=== PATIENT | female | born 1970 | race Caucasian/White ===

== ENCOUNTER 2022-12-17 10:38 | Outpatient (CLI) | payer BC, SELFPAY ==
[2022-12-17 19:14] LABS: Chloride* 102 mmol/L (96-114); Potassium* 4.4 mmol/L (3.6-5.1); Sodium* 140 mmol/L (135-149)
[2022-12-17 19:17] LABS: Blood Urea Nitrogen* 25 mg/dL (7-30); Carbon Dioxide* 25 mmol/L (20-32); Cholesterol* 202 mg/dL (90-199); Creatinine* 0.8 mg/dL (0.5-1.5); Estimated Glomerular Filt Rate 88 ml/min
[2022-12-17 19:18] LABS: Calcium* 9.3 mg/dL (8.4-10.6); Glucose* 114 mg/dL (60-115); HDL Cholesterol* 61 mg/dL (>=50); LDL Cholesterol Calculated 100 mg/dL (<100); Triglycerides* 205 mg/dL (40-149)
== END 2022-12-17 10:39 | disposition home or self-care (01) ==
PROVIDERS: PCP Family Medicine; Visit Provider Family Medicine
DX: E03.9 Hypothyroidism, unspecified (principal); I10 Essential (primary) hypertension; E78.5 Hyperlipidemia, unspecified; E66.9 Obesity, unspecified
CPT/HCPCS: 80048; 80061; 84443

== ENCOUNTER 2023-01-25 10:58 | Outpatient (CLI) | payer BC, SELFPAY | END 2023-01-25 10:59 | disposition home or self-care (01) | PROVIDERS: PCP Family Medicine; Visit Provider Internal Medicine | DX: Z12.11 Encounter for screening for malignant neoplasm of colon (principal); K63.5 Polyp of colon | CPT/HCPCS: 45380; 88305; J2250; J3010 ==

== ENCOUNTER 2023-07-23 10:22 | Outpatient (RCR) | payer BC, SELFPAY | END 2023-08-19 09:44 | disposition home or self-care (01) | PROVIDERS: PCP Family Medicine; Visit Provider Orthopaedic Surgery | DX: M17.12 Unilateral primary osteoarthritis, left knee (principal); Z96.652 Presence of left artificial knee joint; M62.81 Muscle weakness (generalized); R26.9 Unspecified abnormalities of gait and mobility; Z47.1 Aftercare following joint replacement surgery; M25.562 Pain in left knee; Z51.89 Encounter for other specified aftercare | CPT/HCPCS: 97110; 97161 ==

== ENCOUNTER 2023-07-30 07:23 | Day surgery (SDC) | payer BC, SELFPAY ==
[2023-07-30] VITALS (22 sets, daily range): BP systolic 101–151; BP diastolic 50–83; PULSE 59–91; RESP 16–20; TEMP 35.8–37.2; O2SAT 92–98; BMI 65.8
[2023-07-30] MEDS: ACETAMINOPHEN 500 MG TABLET 1000 MG PO ×2 (06:42→18:51)
[2023-07-30] MEDS: OXYCODONE (CR) 10 MG TAB.ER.12H PO (06:42)
[2023-07-30] MEDS: MIDAZOLAM HCL 1 MG/ML inj IVP (06:42)
[2023-07-30] MEDS: fentaNYL 100 MCG/2 ML inj IVP (06:42)
[2023-07-30] MEDS: CELECOXIB 200 MG CAPSULE PO (06:42)
[2023-07-30] MEDS: LACTATED RINGERS 1000 ML 1,000 ML 100 ML IV ×2 (06:45→10:50)
--- NOTE | 2023-07-30 08:55 | SUR.PREOP ---
verified left knee with pt md and consent left knee scrub done and double jeremy wrap to right knee unable to fit brigette lackey on
[2023-07-30] MEDS: SODIUM CHLORIDE 0.9 % (FLUSH) 10 ML SYRINGE IVF (09:28)
--- NOTE | 2023-07-30 09:30 | SUR.PREOP ---
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
--- NOTE | 2023-07-30 09:32 | SUR.PREOP ---
CPAP inspected by maintenance
[2023-07-30] MEDS: CEFAZOLIN 2 GM INJ IVP (09:45)
[2023-07-30] MEDS: TRANEXAMIC ACID 100 MG/ML INJ 1000 MG IV (09:45)
--- NOTE | 2023-07-30 09:56 | P.NB_ITS ---
Nerve Block Nerve Block Time Seen by Provider: : Date Seen: 07/30/23 Type of block requested by surgeon for post-operative analgesia: geniculars Side: left Time out performed: Yes Verification of patient name: Yes Verification of date of : Yes Site marking: site marked Name of person performing procedure: Shimon Continuous monitoring Was continuous monitoring of O2 sat, B/P, call center associate, recorded every 15 minutes?: Yes Procedure Checklist: sterile prep, needles and gloves Medications given in 5ml increments after negative aspiration: Ropivicaine %: 0.5 mL: 9 Needle gauge: 25 Patient tolerated procedure well: Yes Block Charges Block Charge (with Pro Fee): Genicular Nerve Block Use of Ultrasound Machine for Block: No
--- NOTE | 2023-07-30 09:56 | W.PM.NB ---
Nerve Block Nerve Block Time Seen by Provider: : Date Seen: 07/30/23 Type of block requested by surgeon for post-operative analgesia: adductor canal Side: left Time out performed: Yes Verification of patient name: Yes Verification of date of : Yes Site marking: site marked Name of person performing procedure: Shimon Continuous monitoring Was continuous monitoring of O2 sat, B/P, property assessment monitor, recorded every 15 minutes?: Yes Procedure Checklist: sterile prep, needles and gloves Ultrasound guided. Images saved: Yes Medications given in 5ml increments after negative aspiration: Ropivicaine %: 0.5 mL: 20 Needle gauge: 20 Decadron (mg): 10 Precedex (mcg): 25 Patient tolerated procedure well: Yes Additional comments: Needle noted adjacent to nerve Block Charges Block Charge (with Pro Fee): Femoral Nerve Use of Ultrasound Machine for Block: Yes- US Guidance/pain block
--- NOTE | 2023-07-30 09:57 | W.ANESCHARGE ---
Anesthesia Charges Start Date/Time Anesthesia Start Date: 07/30/23 Anesthesia Start Time: 09:38 Stop Date/Time Anesthesia Stop Date: 07/30/23 Anesthesia Stop Time: 12:32
--- NOTE | 2023-07-30 11:39 | CRLHL7_ITS ---
For Patients: As a result of the Cures Act, medical imaging exams and procedure reports are released immediately into your electronic medical record. You may view this report before your referring provider. If you have questions, please contact your health care provider. Indication: Postop Technique: Two views left knee Findings/Impression: Hardware from a left total knee arthroplasty is in satisfactory position. Bone alignment is normal. No sign of acute fracture. Postop changes are within normal limits. Dictated by Seng Morris MD @ 07/30/2023 1:08:58 PM (Electronically Signed)
--- NOTE | 2023-07-30 11:41 | PM.ORPRC ---
Procedure Note Date of procedure: 07/30/23 Procedure: PREOPERATIVE DIAGNOSIS: Left knee osteoarthritis POSTOPERATIVE DIAGNOSIS: Left knee osteoarthritis NAME OF OPERATION: Left total knee arthroplasty SURGEON: Iker Lamar MD SHAPER OPERATOR: Sree Puentes OPA ANESTHESIA: Spinal ESTIMATED BLOOD LOSS: 25 mL COMPLICATIONS: None SPECIMENS: None DRAINS: None PREOPERATIVE ANTIBIOTICS: Ancef 3 grams, antibiotic impregnated cement IMPLANTS: 1. J&J Attune #6 revision CRS posterior stabilized femur with a 14 mm x 50 mm cemented stem 2. # 5 revision CRS fixed-bearing tibia with a 14 mm x 50 mm cemented stem 3. #6 posterior stabilized, 8 mm fixed-bearing, constrained polyethylene 4. 38 patella INDICATIONS: The patient is a 52-year-old with a longstanding history of severe, unrelenting left knee pain secondary to end-stage (grade IV) left knee osteoarthritis. Despite appropriate nonoperative management, including activity modification, anti-inflammatories, [id number] pain medication, bracing, physical therapy, and injections they continue to have pain and disability. Operative intervention was offered. The risks, benefits and expected outcomes were discussed in detail. These included but were not limited to: Infection, bleeding, injury to blood vessel or nerve, venous thromboembolism. All questions were answered to their satisfaction. Use of an seed laboratory assistant was necessary throughout the case for patient positioning and safety, soft tissue retraction, and closure. A modifier 22 should be added to this case. The patient weighs 173 kg with a BMI of 66 kg/meter squared. There is a 50 mm thick layer of adipose over the quads tendon. These factors made exposure difficult and more than doubled the time typically required to complete the case. PROCEDURE: Spinal anesthesia was administered. The patient was placed supine on the operating table. The seed laboratory assistant made sure the patient was positioned appropriately. The lower extremity was prepped and draped in the usual sterile fashion. The limb was exsanguinated with the Myke bandage. The pneumatic tourniquet was inflated to 300 mmHg. A standard anterior incision was made with the knee in flexion. Subcutaneous dissection was sharply taken through fascial layer #1. Full-thickness medial and lateral flaps were elevated. The seed laboratory assistant retracted the soft tissues and protected them throughout the case. A standard medial parapatellar approach was made. The patella was everted. The infrapatellar fat pad was debrided. The menisci and cruciate ligaments were sharply d?brided. Marginal osteophytes were d?brided with the rongeur. The drill was used to penetrate the femoral canal. The canal was aspirated and irrigated with pulse lavage. The intramedullary femoral guide was placed for a 5-degree valgus cut, removing 10 mm off the distal femur. The saw was used to make the cut. Attention was then turned to the proximal tibia. The extramedullary tibial guide was placed for a neutral varus/valgus cut with 5 degrees of posterior slope, removing 2 mm based off the medial tibial surface. The seed laboratory assistant protected the collateral ligaments and the neurovascular bundle. The saw was used to make the cut. Attention was then returned to the distal femur. Whitesides line and the trans epicondylar axis were marked. The femoral sizing guide was pinned onto the distal femur. Three degrees of external rotation nicely parallels the transepicondylar axis. Pins were placed for posterior referencing. The four-in-one cutting guide was pinned onto the distal femur. The anterior, posterior, and chamfer cuts were made. The seed laboratory assistant protected the collateral ligaments. The trial femoral component was placed. The intramedullary drill was used x2. The box cuts were made. The stemmed, boxed trial was placed and was an excellent fit. The trial femoral component was removed. The tibial tray was placed in appropriate rotation, parallel to our tibial cutting pins. It was pinned by the seed laboratory assistant. Intramedullary drill x2 were used. The punch was used. The tray was removed. The punch was used again. The stemmed trial tibial component was placed and was an excellent fit. Trial femoral component was placed. Trial polyethylene was placed. The knee was nicely balanced in both flexion and extension. Trial components were removed. Attention was then turned to the patella. [place] patellar thickness was 24 mm. The lobster claw resection guide was used with the 9.5 mm juanis. The saw was used to make the cut. Drill holes were made by the seed laboratory assistant. The trial was placed and was an excellent fit. Cancellous surfaces were irrigated with pulse lavage and thoroughly dried by the seed laboratory assistant. We cemented the tibial component, then the femoral component. We impacted the 8 mm polyethylene onto the tibial tray. The knee was brought into full extension. We then cemented the patellar component. Excessive cement was removed. The cement was allowed to harden. The knee was taken through a range of motion and was found to be nicely balanced in both flexion and extension. The patella tracks centrally. The seed laboratory assistant did a three minute dilute Betadine solution soak. The seed laboratory assistant irrigated the wound with 3 liters of normal saline via pulse lavage. The seed laboratory assistant reapproximated the extensor mechanism with #1 Vicryl in an interrupted anokxk-uv-zcmwy fashion. The seed laboratory assistant then ran the extensor mechanism with a #1 PDO Stratafix. The seed laboratory assistant closed the subcutaneous tissues with a 3-0 Stratafix and the skin with a running 3-0 Stratafix in a subcuticular fashion. Glue was used to seal the skin. The seed laboratory assistant placed a dry dressing, JU stocking, and Polar Care. Sponge and needle counts were correct x2. The patient tolerated the procedure well. There were no apparent complications. They were carefully transferred to the hospital bed and taken to the postanesthesia care unit in satisfactory condition. PLAN: The patient will be mobilized with physical therapy. Aspirin will be used for DVT prophylaxis. They will be discharged to home once medically appropriate.
[2023-07-30] MEDS: HYDROmorphone 0.5 mg/0.5 ml inj IVP ×2 (13:50→15:28)
[2023-07-30] MEDS: LACTATED RINGERS 1000 ML 1,000 ML 75 ML IV (14:54)
--- NOTE | 2023-07-30 15:46 | P.IMCN_ITS ---
Date of Consult Consult date: 07/30/23 Primary Care Provider: Adi Brown MD Consult Narrative Reason for consult: HTN, hyperlipidemia Narrative: Janine Berrios is a 52 year old female who underwent a left total knee arthroplasty today by Dr. Lamar for severe osteoarthritis. She is feeling well postoperatively and just started to have some pain for which she took a pain pill not long ago. Review of Systems Status of ROS: Reports: 6 or more systems reviewed and unremarkable except as noted in History and below PFSH [facility] Medical History Vitamin B12 deficiency ?E53.8 - Deficiency of other specified B group vitamins (ICD-10) Bilateral primary osteoarthritis of knee ?M17.0 - Bilateral primary osteoarthritis of knee (ICD-10) Cholelithiasis ?K80.20 - Calculus of gallbladder without cholecystitis without obstruction (ICD-10) Obesity ?E66.9 - Obesity, unspecified (ICD-10) Unspecified asthma, uncomplicated ?J45.909 - Unspecified asthma, uncomplicated (ICD-10) Hyperlipidemia, unspecified ?E78.5 - Hyperlipidemia, unspecified (ICD-10) Degenerative arthritis of lumbar spine ?M47.816 - Spondylosis without myelopathy or radiculopathy, lumbar region (ICD-10) Anxiety disorder, unspecified ?F41.9 - Anxiety disorder, unspecified (ICD-10) Apnea, sleep ?G47.30 - Sleep apnea, unspecified (ICD-10) Allergic rhinitis, seasonal ?J30.2 - Other seasonal allergic rhinitis (ICD-10) Restless legs syndrome ?G25.81 - Restless legs syndrome (ICD-10) Acquired dilation of left ventricle of heart ?I51.7 - Cardiomegaly (ICD-10) Essential (primary) hypertension ?I10 - Essential (primary) hypertension (ICD-10) Depression, major ?F32.9 - Major depressive disorder, single episode, unspecified (ICD-10) Parathyroid adenoma ?D35.1 - Benign neoplasm of parathyroid gland (ICD-10) Hypothyroidism, unspecified ?E03.9 - Hypothyroidism, unspecified (ICD-10) Left ventricular hypertrophy (06/08/09) ?I51.7 - Cardiomegaly (ICD-10) Infection due to severe acute respiratory syndrome coronavirus 2 (SARS-CoV-2) ?U07.1 - COVID-19 (ICD-10) Surgical History (Updated 07/30/23 @ 16:01 by Barbara Cardona MD) S/P total knee arthroplasty (07/30/23) ?Z96.659 - Presence of unspecified artificial knee joint (ICD-10) History of total abdominal hysterectomy (03/07/13) ?Z90.710 - Acquired absence of both cervix and uterus (ICD-10) H/O section ?Z98.891 - History of uterine scar from previous surgery (ICD-10) H/O partial thyroidectomy ?E89.0 - Postprocedural hypothyroidism (ICD-10) Family History Father Coronary artery disease Heart disease B12 deficiency Mother CHF (congestive heart failure) Atrial fibrillation Sister Hypothyroidism Sister Hypothyroidism Sister Hypothyroidism Sister Hypothyroidism Social History Narrative: . 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 Lifelong nonsmoker. Alcohol use is rare. What is your current living situation?: I presently have a place to live In the past 12 months, utilities in danger of being shut off: no In past 12 months, lack of transportation kept you from medical appts, meetings, work, or getting things needed for daily living: no In the past 12 mos, have been you worried that your food would run out before you had money to buy more?: never true In the past 12 mos, the food you bought just didn't last and you didn't have money to buy more?: never true Smoking Status: Former smoker What tobacco products do you use: cigarettes Smoking quit date/years: >15 years ago Do you use any of these nicotine containing products: None Second hand tobacco smoke exposure: No How often do you have a drink containing alcohol: monthly or less Alcohol type: wine How many standard drinks containing alcohol do you have on a typical day: 1 or 2 How often do you have six or more drinks on one occasion: Never AUDIT-C Alcohol total score: 1 Non-prescribed substance use: denies use Caffeine: Yes (coffee 1-2) How often does anyone, including family, friends and others, physically hurt you : never How often does anyone, including family, friends and others, insult or talk down to you: never How often does anyone, including family, friends and others, scream or curse at you: never Little interest or pleasure in doing things: not at all Feeling down, depressed, or hopeless: more than half the days service: No Meds Home Medications and Allergies Home Medications Medication Instructions Recorded Confirmed Type multivitamin 1 tab PO QDAY 05/09/22 07/30/23 History albuterol sulfate 90 mcg/actuation 1 - 2 puff inhalation Q4H PRN 05/25/22 07/30/23 History aerosol inhaler aspirin 81 mg tablet,delayed 81 mg PO QDAY 05/25/22 07/30/23 History release (Adult Low Dose Aspirin) atorvastatin 20 mg tablet 20 mg PO HS 07/30/23 07/30/23 History levothyroxine 150 mcg tablet 150 mcg PO DAILY 07/30/23 07/30/23 History ropinirole 0.5 mg tablet 0.5 mg PO HS 07/30/23 07/30/23 History Home Medication Comments: Medications include albuterol inhaler, alprazolam as needed for anxiety, amlodipine, aspirin 81 mg daily which she held prior to surgery, atorvastatin, surgery zinc, vitamin B12 injections monthly, escitalopram, fluticasone nasal spray, hydrochlorothiazide, levothyroxine, lisinopril, lorazepam, multivitamin, then Megha main, potassium chloride, and ropinirole. Allergies Allergy/AdvReac Type Severity Reaction Status Date / Time No Known Drug Allergies Allergy Verified 07/30/23 07:49 Exam Narrative: Exam Narrative: General: No acute distress. Awake alert oriented x3. Morbidly obese. HEENT: Normocephalic atraumatic, pupils equally round and reactive to light and accommodation. Oropharynx clear. Mucous membranes are moist. No JVD. Cardiovascular: Regular rate and rhythm. No murmurs, gallops, or rubs. Chest: No increased work of breathing. Clear to auscultation bilaterally. No crackles or wheezes. Abdomen: Bowel sounds present. Soft, nondistended, nontender. No hepatosplenomegaly or masses. Extremities: Left knee bandages are clean, dry, and intact. No cyanosis or clubbing. Skin: No jaundice, no pallor, no rashes on visible skin. Const: Vital Signs, click to edit/add: Vital Signs - 24 hr 07/30/23 08:01 07/30/23 09:31 07/30/23 12:27 Temperature 98.6 F 97.4 F L Pulse Rate 70 76 72 Pulse Rate [Left P ulse Oximeter] Respiratory Rate 20 20 16 Blood Pressure 143/75 H 140/72 H 106/50 L Blood Pressure [Ri ght Arm] Pulse Oximetry 97 98 97 Oxygen Delivery Me thod Room Air Room Air Room Air 07/30/23 12:30 07/30/23 12:35 07/30/23 12:40 Temperature Pulse Rate 70 66 65 Pulse Rate [Left P ulse Oximeter] Respiratory Rate 18 18 18 Blood Pressure 115/61 101/60 117/60 Blood Pressure [Ri ght Arm] Pulse Oximetry 96 94 95 Oxygen Delivery Me thod 07/30/23 12:45 07/30/23 12:50 07/30/23 12:55 Temperature 97.3 F L Pulse Rate 59 L 63 64 Pulse Rate [Left P ulse Oximeter] Respiratory Rate 18 20 20 Blood Pressure 113/67 115/62 Blood Pressure [Ri ght Arm] Pulse Oximetry 96 95 95 Oxygen Delivery Me thod 07/30/23 13:07 07/30/23 13:15 07/30/23 13:30 Temperature 96.4 F L Pulse Rate 62 Pulse Rate [Left P ulse Oximeter] 61 61 Respiratory Rate 16 16 16 Blood Pressure Blood Pressure [Ri ght Arm] 151/74 H 140/79 H 136/77 Pulse Oximetry 96 96 Oxygen Delivery Me thod Room Air Room Air Room Air 07/30/23 13:45 07/30/23 14:00 07/30/23 14:30 Temperature 96.8 F L 97.1 F L Pulse Rate Pulse Rate [Left P ulse Oximeter] 62 68 74 Respiratory Rate 18 16 18 Blood Pressure Blood Pressure [Ri ght Arm] 130/82 144/83 H 144/83 H Pulse Oximetry 95 95 96 Oxygen Delivery Me thod Room Air Room Air Room Air 07/30/23 15:00 07/30/23 15:00 Temperature 97.8 F Pulse Rate Pulse Rate [Left P ulse Oximeter] 78 Respiratory Rate 18 Blood Pressure Blood Pressure [Ri ght Arm] 147/82 H Pulse Oximetry 96 95 Oxygen Delivery Me thod Room Air Assessment and Plan Assessment and plan (1) S/P total knee arthroplasty: Status: Acute (2) Anxiety disorder, unspecified: Status: Chronic (3) Hypothyroidism, unspecified: Status: Chronic (4) Obesity: Problem comment: BMI 64.3, obese class 3 Status: Chronic (5) Apnea, sleep: Problem comment: On CPAP Status: Chronic (6) Hyperlipidemia, unspecified: Status: Chronic (7) Essential (primary) hypertension: Status: Chronic (8) Bilateral primary osteoarthritis of knee: Problem comment: Bilateral, end-stage, [id number], severe Status: Chronic Plan 52-year-old female underwent elective left total knee arthroplasty for severe osteoarthritis today by Dr. Lamar. She is doing well postoperatively. I will reorder her usual home medications with the exception of a daily baby aspirin and her antihypertensives. Antihypertensives can be restarted tomorrow if her blood pressures remain elevated, otherwise they can be restarted upon discharge. Will also review her medications for discharge. VTE prophylaxis with twice a day low-dose baby aspirin. Follow-up with primary as needed as an outpatient.
[2023-07-30] MEDS: ALPRAZolam 0.25 MG TABLET 1 MG PO (16:19)
[2023-07-30] MEDS: OXYCODONE 5 MG TABLET PO ×3 (17:35→21:24)
--- NOTE | 2023-07-30 17:40 | PC.NURSE ---
Pt alert and oriented. Pt had complaints of pain ranging from 6-10; see EMAR for intervention. Pt SBA with walker and gait belt. Pt advanced to regular diet and tolerating well. Pt?s legs were jeremy wrapped after surgery for blood clot prevention; tolerating well.
[2023-07-30] MEDS: ROPINIROLE HCL 1 MG TABLET 0.5 MG PO (20:58)
[2023-07-30] MEDS: SENNOSIDES 1 TAB TABLET 2 TAB PO (20:58)
[2023-07-30] MEDS: ATORVASTATIN 10 MG TABLET 20 MG PO (20:59)
[2023-07-30] MEDS: BUDESONIDE 0.5 MG/2ML NEB NEB (20:59)
[2023-07-30] MEDS: lisinopriL 20 MG TABLET PO (20:59)
[2023-07-30] MEDS: ASPIRIN 81 MG TABLET EC PO (20:59)
[2023-07-31] MEDS: OXYCODONE 5 MG TABLET PO ×3 (00:58→09:31)
[2023-07-31] MEDS: ACETAMINOPHEN 500 MG TABLET 1000 MG PO ×2 (00:58→06:47)
[2023-07-31 03:00] VITALS: BP 119/64; PULSE 62; RESP 18; TEMP 36.7; O2SAT 93
--- NOTE | 2023-07-31 05:12 | PC.NURSE ---
Shift note: Pt is doing well with A1, walker and GB. Pain level was high (8-10) at the start of the shift [id number]. Pt requested pain medications Q2h. Pt confirmed later that pain has been stable at 4 after Schedule Tylenol and PRN oxycodone 5mg was given at 0100 for pain level of 10. Dressing looked clean and dry. Cryocuff applied and ABIEL wrap on BLE. No fever, n/v and abd pain after oral intake. Pt confirmed passing gas but no BM. CPAP used throughout the shift. Vitally stable.
[2023-07-31 06:17] LABS: Basophils Percent Auto 0.1 % (0.0-3.0); Hematocrit 34.8 % (33.0-51.0); Hemoglobin* 11.4 gm/dL (12.0-16.0); Lymphocytes Percent Auto 13.2 % (20-44); Mean Corpuscular HGB Conc 33 gm/dL (32-36); Mean Corpuscular Hemoglobin 29 pg (26-34); Mean Corpuscular Volume 88 fL (80-100); Monocytes Percent Auto 8.7 % (0.0-11.0); Platelet Count* 342 K/uL (140-440); RDW Coefficient of Variation % 13.4 % (11.5-15.5); Red Blood Count 3.96 m/uL (4.00-5.20)
[2023-07-31 06:20] LABS: Slide Review Reflex No
[2023-07-31] MEDS: LEVOTHYROXINE 75 MCG TABLET 150 MCG PO (06:47)
[2023-07-31 07:00] VITALS: BP 131/86; PULSE 69; RESP 18; TEMP 35.8; O2SAT 97
[2023-07-31 07:00] LABS: Potassium* 4.2 mmol/L (3.6-5.1); Sodium* 136 mmol/L (135-149)
[2023-07-31 07:03] LABS: Blood Urea Nitrogen* 21 mg/dL (7-30); Creatinine* 0.7 mg/dL (0.5-1.5); Estimated Glomerular Filt Rate 103 ml/min
[2023-07-31 07:16] LABS: INR 1.03 (0.91-1.10); Prothrombin Time 14.1 Seconds
[2023-07-31] MEDS: ASPIRIN 81 MG TABLET EC PO (08:46)
[2023-07-31] MEDS: MULTIVITAMIN/MINERALS 1 TABLET 1 TAB PO (08:46)
[2023-07-31] MEDS: lisinopriL 20 MG TABLET PO (08:46)
[2023-07-31] MEDS: SENNOSIDES 1 TAB TABLET 2 TAB PO (08:47)
[2023-07-31] MEDS: ESCITALOPRAM 10 MG TABLET PO (08:47)
[2023-07-31] MEDS: CETIRIZINE HCL 10 MG TABLET PO (08:47)
[2023-07-31] MEDS: BUDESONIDE 0.5 MG/2ML NEB NEB (08:48)
--- NOTE | 2023-07-31 09:56 | PM.ORPN ---
Subjective Subjective Time Seen by Provider: 07:30 Date Seen: 07/31/23 Principal diagnosis: Status post left knee replacement 07/30/2023 Interval history: Janine is comfortable this morning. She is sitting in a chair. She plans to discharge to home today. Ortho Exam Narrative Exam Narrative: Alert and oriented x3. Patient is in no acute distress. Converses without labored breathing. Hearing is grossly intact. Ambulates with a walker. Examination of the left lower extremity shows the dressing is intact. Bilateral calves are soft and nontender. No sign of erythema or or sign of infection. Mild edema. Effusion is present. Able to straight leg raise. Const Vital Signs, click to edit/add: Vital Signs - 24 hr 07/30/23 12:27 07/30/23 12:30 07/30/23 12:35 Temperature 97.4 F L Pulse Rate 72 70 66 Pulse Rate [Left Pulse Oximeter] Respiratory Rate 16 18 18 Blood Pressure 106/50 L 115/61 101/60 Blood Pressure [Right Arm] Pulse Oximetry 97 96 94 Oxygen Delivery Method Room Air 07/30/23 12:40 07/30/23 12:45 07/30/23 12:50 Temperature Pulse Rate 65 59 L 63 Pulse Rate [Left Pulse Oximeter] Respiratory Rate 18 18 20 Blood Pressure 117/60 113/67 115/62 Blood Pressure [Right Arm] Pulse Oximetry 95 96 95 Oxygen Delivery Method 07/30/23 12:55 07/30/23 13:07 07/30/23 13:15 Temperature 97.3 F L 96.4 F L Pulse Rate 64 62 Pulse Rate [Left Pulse Oximeter] 61 Respiratory Rate 20 16 16 Blood Pressure Blood Pressure [Right Arm] 151/74 H 140/79 H Pulse Oximetry 95 96 Oxygen Delivery Method Room Air Room Air 07/30/23 13:30 07/30/23 13:45 07/30/23 14:00 Temperature 96.8 F L Pulse Rate Pulse Rate [Left Pulse Oximeter] 61 62 68 Respiratory Rate 16 18 16 Blood Pressure Blood Pressure [Right Arm] 136/77 130/82 144/83 H Pulse Oximetry 96 95 95 Oxygen Delivery Method Room Air Room Air Room Air 07/30/23 14:30 07/30/23 15:00 07/30/23 15:00 Temperature 97.1 F L 97.8 F Pulse Rate Pulse Rate [Left Pulse Oximeter] 74 78 Respiratory Rate 18 18 Blood Pressure Blood Pressure [Right Arm] 144/83 H 147/82 H Pulse Oximetry 96 96 95 Oxygen Delivery Method Room Air Room Air 07/30/23 16:00 07/30/23 17:00 07/30/23 18:00 Temperature 98.9 F 98.9 F 98.9 F Pulse Rate Pulse Rate [Left Pulse Oximeter] 83 89 91 Respiratory Rate 18 18 18 Blood Pressure Blood Pressure [Right Arm] 150/75 H 133/71 124/68 Pulse Oximetry 94 94 93 Oxygen Delivery Method Room Air Room Air Room Air 07/30/23 18:55 07/30/23 20:28 07/30/23 23:00 Temperature 97.3 F L 97.5 F L Pulse Rate Pulse Rate [Left Pulse Oximeter] 82 88 Respiratory Rate 18 18 Blood Pressure Blood Pressure [Right Arm] 134/76 134/70 Pulse Oximetry 92 94 92 Oxygen Delivery Method Room Air Room Air 07/30/23 23:00 07/30/23 23:00 07/30/23 23:00 Temperature 97.2 F L Pulse Rate Pulse Rate [Left Pulse Oximeter] 61 61 Respiratory Rate 18 18 18 Blood Pressure Blood Pressure [Right Arm] 118/70 Pulse Oximetry 92 92 Oxygen Delivery Method Room Air Room Air 07/31/23 03:00 Temperature 98.1 F Pulse Rate Pulse Rate [Left Pulse Oximeter] 62 Respiratory Rate 18 Blood Pressure Blood Pressure [Right Arm] 119/64 Pulse Oximetry 93 Oxygen Delivery Method Room Air Assessment and Plan Assessment and plan (1) S/P total knee arthroplasty: Problem details: Left, 07/30/2023 Status: Acute Assessment and Plan: Plan for discharge is today to home if they meet discharge criteria. DVT prophylaxis includes aspirin 81 mg twice daily x1 month, Prasanna stockings x1 month may remove for 1 hr per day, frequent ambulation Remove dressing in 1 week. Observe wound and phone Orthopedics with any questions or concerns Return to clinic in 1 week for a wound check Return to clinic in 6 weeks with surgeon Minimize narcotic use. Wean off and discontinue soon as possible. Activities as tolerated. No strenuous activity. Outpatient physical therapy as scheduled. Ice and elevate the operative extremity. No restriction on ice. (2) Anxiety disorder, unspecified: Status: Chronic (3) Hypothyroidism, unspecified: Status: Chronic (4) Obesity: Problem details: BMI 64.3, obese class 3 Status: Chronic (5) Apnea, sleep: Problem details: On CPAP Status: Chronic (6) Hyperlipidemia, unspecified: Status: Chronic (7) Essential (primary) hypertension: Status: Chronic (8) Bilateral primary osteoarthritis of knee: Problem details: Bilateral, end-stage, [id number], severe Status: Chronic
[2023-07-31 11:00] VITALS: BP 129/65; PULSE 63; RESP 18; TEMP 35.5; O2SAT 96
--- NOTE | 2023-07-31 13:35 | PC.NURSE ---
discharge. pt has been pleasant. left knee pain 4-1010. she is getting po pain meds. she is up with A1, walker and GB. Dressing is C/D/I. Cryocuff on. ABIEL wrap on legs are on and off. she is a fall risk. alarms are on. PT and OT worked with her. went over discharge packet with pt. went over medications, appointments, education and instructions. she went over and signed personal belonging list. she took all paperwork and belongings with her. she was helped in to her SUV.
--- NOTE | 2023-08-07 07:59 | W.ANESCHARGE ---
Anesthesia Charges Start Date/Time Anesthesia Start Date: 07/30/23 Anesthesia Start Time: 09:38 Stop Date/Time Anesthesia Stop Date: 07/30/23 Anesthesia Stop Time: 12:32
== END 2023-07-31 11:40 | disposition home or self-care (01) ==
LOC: OR 07:25 → MEDSURG 07:28
PROVIDERS: PCP Family Medicine; Visit Provider Orthopaedic Surgery
PROC: (CPT 27447; principal; 2023-07-30 08:45)
DX: M17.12 Unilateral primary osteoarthritis, left knee (principal); G89.18 Other acute postprocedural pain; I10 Essential (primary) hypertension; E66.9 Obesity, unspecified; Z68.44 Body mass index [BMI] 60.0-69.9, adult; E78.5 Hyperlipidemia, unspecified; G47.30 Sleep apnea, unspecified; F41.9 Anxiety disorder, unspecified; E03.9 Hypothyroidism, unspecified
CPT/HCPCS: 27447; 00142; 01402; 36415; 64447; 64454; 73560; 76942; 82565; 84132; 84295; 84520; 85025; 85610; 94640; 97110; 97116; 97161; 97165; 97530; 97535; A9153; A9270; C1776; J0690; J1100; J1170; J2250; J2704; J2795; J3010; J3490; J7120; J7626

== ENCOUNTER 2023-09-18 08:18 | Outpatient (CLI) | payer BC, SELFPAY | END 2023-09-18 08:19 | disposition home or self-care (01) | LOC: LONREF 08:24 | PROVIDERS: PCP Family Medicine; Visit Provider Family Medicine | DX: Z01.818 Encounter for other preprocedural examination (principal) | CPT/HCPCS: 80048 ==

== ENCOUNTER 2023-09-30 08:40 | Day surgery (SDC) | payer BC, SELFPAY ==
[2023-09-30] VITALS (23 sets, daily range): BP systolic 99–152; BP diastolic 42–87; PULSE 63–86; RESP 16–22; TEMP 35.9–36.6; O2SAT 92–98; BMI 64.5
[2023-09-30] MEDS: ACETAMINOPHEN 500 MG TABLET 1000 MG PO ×3 (09:46→22:56)
[2023-09-30] MEDS: OXYCODONE (CR) 10 MG TAB.ER.12H PO (09:46)
[2023-09-30] MEDS: CELECOXIB 200 MG CAPSULE PO (09:46)
[2023-09-30] MEDS: SODIUM CHLORIDE 0.9 % (FLUSH) 10 ML SYRINGE IVF (10:15)
[2023-09-30] MEDS: LACTATED RINGERS 1000 ML 1,000 ML 100 ML IV (10:15)
[2023-09-30] MEDS: fentaNYL 100 MCG/2 ML inj IVP (10:26)
[2023-09-30] MEDS: MIDAZOLAM HCL 1 MG/ML inj IVP (10:26)
--- NOTE | 2023-09-30 10:26 | SUR.PREOP ---
TIME?OUT:?1025 PT/RN/MDA?VERIFICATION?OF?SURGICAL?SITE,?PROCEDURE,?AND?CONSENT OBTAINED?PRIOR?TO?INVASIVE?PROCEDURE. ALL IN AGREEMENT
[2023-09-30] MEDS: CEFAZOLIN 1 GM inj 3 GM IVP (11:02)
[2023-09-30] MEDS: TRANEXAMIC ACID 100 MG/ML INJ 1000 MG IV (11:10)
--- NOTE | 2023-09-30 11:12 | P.NB_ITS ---
Nerve Block Nerve Block Time Seen by Provider: 10:30 Date Seen: 09/30/23 Type of block requested by surgeon for post-operative analgesia: adductor canal Side: right Time out performed: Yes Verification of patient name: Yes Verification of date of : Yes Site marking: site marked Name of person performing procedure: Shimon Continuous monitoring Was continuous monitoring of O2 sat, B/P, rn cardiac rehab, recorded every 15 minutes?: Yes Procedure Checklist: sterile prep, needles and gloves Ultrasound guided. Images saved: Yes Medications given in 5ml increments after negative aspiration: Ropivicaine %: 0.5 mL: 20 Needle gauge: 20 Decadron (mg): 10 Precedex (mcg): 25 Patient tolerated procedure well: Yes Additional comments: Needle noted adjacent to nerve Block Charges Block Charge (with Pro Fee): Femoral Nerve Use of Ultrasound Machine for Block: Yes- US Guidance/pain block
--- NOTE | 2023-09-30 11:12 | W.PM.NB ---
Nerve Block Nerve Block Time Seen by Provider: 10:30 Date Seen: 09/30/23 Type of block requested by surgeon for post-operative analgesia: geniculars Side: right Time out performed: Yes Verification of patient name: Yes Verification of date of : Yes Site marking: site marked Name of person performing procedure: Shimon Continuous monitoring Was continuous monitoring of O2 sat, B/P, playground monitor, recorded every 15 minutes?: Yes Procedure Checklist: sterile prep, needles and gloves Medications given in 5ml increments after negative aspiration: Ropivicaine %: 0.5 mL: 9 Needle gauge: 25 Patient tolerated procedure well: Yes Block Charges Block Charge (with Pro Fee): Genicular Nerve Block Use of Ultrasound Machine for Block: No
--- NOTE | 2023-09-30 11:13 | W.ANESCHARGE ---
Anesthesia Charges Start Date/Time Anesthesia Start Date: 09/30/23 Anesthesia Start Time: 10:51 Stop Date/Time Anesthesia Stop Date: 09/30/23 Anesthesia Stop Time: 13:36
--- NOTE | 2023-09-30 12:43 | CRLHL7_ITS ---
For Patients: As a result of the Cures Act, medical imaging exams and procedure reports are released immediately into your electronic medical record. You may view this report before your referring provider. If you have questions, please contact your health care provider. Indication: Postop total knee arthroplasty. Technique: Right knee two views. Comparison: None available. Findings: Right knee arthroplasty appears appropriately positioned. Anterior soft tissue gas consistent with recent surgery. No acute osseous abnormality or other significant interval change. Impression: Expected changes status post right knee arthroplasty. Dictated by Ronny Barber MD @ 10/01/2023 8:32:53 PM (Electronically Signed)
--- NOTE | 2023-09-30 12:51 | P.ORPRC_ITS ---
Procedure Note Date of procedure: 09/30/23 Procedure: PREOPERATIVE DIAGNOSIS: Right knee osteoarthritis POSTOPERATIVE DIAGNOSIS: Right knee osteoarthritis NAME OF OPERATION: Right total knee arthroplasty SURGEON: Iker Lamar MD HOME COMPANION: KARO Hopper ANESTHESIA: Spinal ESTIMATED BLOOD LOSS: 0 mL COMPLICATIONS: None SPECIMENS: None DRAINS: None PREOPERATIVE ANTIBIOTICS: Ancef 3 grams, antibiotic impregnated cement IMPLANTS: 1. J&J Attune revision CRS # 5 posterior stabilized femur, with a 14 mm x 50 mm cemented stem 2. #5 revision CRS fixed-bearing tibia, with a 14 mm x 50 mm cemented stem 3. # 5 posterior stabilized, 8 mm fixed-bearing polyethylene 4. 38 patella INDICATIONS: The patient is a 53-year-old with a longstanding history of severe, unrelenting right knee pain secondary to end-stage (grade IV) right knee osteoarthritis. Despite appropriate nonoperative management, including activity modification, anti-inflammatories, [id number] pain medication, bracing, physical therapy, and injections they continue to have pain and disability. Operative intervention was offered. The risks, benefits and expected outcomes were discussed in detail. These included but were not limited to: Infection, bleeding, injury to blood vessel o r nerve, venous thromboembolism. All questions were answered to their satisfaction. Use of an contact center assistant was necessary throughout the case for patient positioning and safety, soft tissue retraction, and closure. A modifier 22 should be added to this case. The patient's weight of 170 kg with a BMI of 64.6 kg/meter sq and a 50 mm layer of adipose over the extensor mechanism made exposure very difficult. Stemmed components were used to reduce the risk of aseptic loosening. These factors more than doubled the time typically required to complete the case. PROCEDURE: Spinal anesthesia was administered. The patient was placed supine on the operating table. The contact center assistant made sure the patient was positioned appropriately. The lower extremity was prepped and draped in the usual sterile fashion. The limb was exsanguinated with the Myke bandage. The pneumatic tourniquet was inflated to 300 mmHg. A standard anterior incision was made with the knee in flexion. Subcutaneous dissection was sharply taken through fascial layer #1. Full-thickness medial and lateral flaps were elevated. The contact center assistant retracted the soft tissues and protected them throughout the case. A standard medial parapatellar approach was made. The patella was everted. The infrapatellar fat pad was preserved. The menisci and cruciate ligaments were sharply d?brided. Marginal osteophytes were d?brided with the rongeur. The drill was used to penetrate the femoral canal. The canal was aspirated and irrigated with pulse lavage. The intramedullary femoral guide was placed for a 5-degree valgus cut, removing 10 mm off the distal femur. The saw was used to make the cut. Whitesides line and the trans epicondylar axis were marked. The femoral sizing guide was pinned onto the distal femur. Three degrees of external rotation nicely parallels the transepicondylar axis. Pins were placed for posterior referencing. The four-in-one cutting guide was pinned onto the distal femur. The anterior, posterior, and chamfer cuts were made. The contact center assistant protected the collateral ligaments. Attention was then turned to the proximal tibia. The extramedullary tibial guide was placed for a neutral varus/valgus cut with 5 degrees of posterior slope, removing 2 mm based off the medial tibial surface. The contact center assistant protected the collateral ligaments and the neurovascular bundle. The saw was used to make the cut. The revision femoral trial was placed and pinned. The box cuts were made. The drill x2 were used. The stemmed, boxed trial was placed and was an excellent fit. The femoral trial was removed. Attention was returned to the tibia. The tray was placed in appropriate rotation, parallel to our tibial cutting pins. It was pinned by the contact center assistant and the drill x2 was used. The stemmed tibial trial was placed. The punch was used. The tray was removed. The punch was used again. Trial components were placed. The knee was nicely balanced in both flexion and extension. Attention was then turned to the patella. [place] patellar thickness was 22.5 mm. The lobster claw resection guide was used with the 9.5 mm juanis. The saw was used to make the cut. Drill holes were made by the contact center assistant. The trial was placed and was an excellent fit. Cancellous surfaces were irrigated with pulse lavage and thoroughly dried by the contact center assistant. We cemented the tibial component, then the femoral component. We impacted the 8 mm polyethylene onto the tibial tray. The knee was reduced and was brought into full extension. We then cemented the patellar component. Excessive cement was removed. The cement was allowed to harden. The knee was taken through a range of motion and was found to be nicely balanced in both flexion and extension. The patella tracks centrally. The contact center assistant did a three minute dilute Betadine solution soak. The contact center assistant irrigated the wound with 3 liters of normal saline via pulse lavage. The contact center assistant reapproximated the extensor mechanism with #1 Vicryl in an interrupted [id number] fashion. The contact center assistant then ran the extensor mechanism with a #1 PDO Stratafix. The contact center assistant closed the subcutaneous tissues with a 3-0 Stratafix and the skin with a running 3-0 Stratafix in a subcuticular fashion. Glue was used to seal the skin. The contact center assistant placed a dry dressing, JU stocking, and Polar Care. Sponge and needle counts were correct x2. The patient tolerated the procedure well. There were no apparent complications. They were carefully transferred to the hospital bed and taken to the postanesthesia care unit in satisfactory condition. PLAN: The patient will be mobilized with physical therapy. Aspirin will be used for DVT prophylaxis. They will be discharged to home once medically appropriate.
--- NOTE | 2023-09-30 13:38 | W.ANESCHARGE ---
Anesthesia Charges Start Date/Time Anesthesia Start Date: 09/30/23 Anesthesia Start Time: 10:51 Stop Date/Time Anesthesia Stop Date: 09/30/23 Anesthesia Stop Time: 13:36
--- NOTE | 2023-09-30 14:23 | P.IMCN_ITS ---
Date of Consult Patient: [facility] Patient Consult date: 09/30/23 Requesting Physician: Orthopedics Primary Care Provider: Adi Brown MD Consult Narrative Narrative: Janine Berrios is a 53 year old female who underwent right total knee arthroplasty today. Procedure performed by Dr. Lamar. He has requested consultation for management of medical problems postoperatively. Patient reports doing well at this time. She has no significant pain, dyspnea, chills, nausea. Prior to surgery she has been well with no recent illness or injury. She underwent left total knee arthroplasty 2 months ago and had a uneventful surgery and recovery from that. She has been very satisfied with her progress and results of her surgery. Review of Systems Narrative: Patient reports feeling well since her last surgery. [facility] Medical History (Updated 09/30/23 @ 14:31 by Abner Boyer MD) Vitamin B12 deficiency ?E53.8 - Deficiency of other specified B group vitamins (ICD-10) Cholelithiasis ?K80.20 - Calculus of gallbladder without cholecystitis without obstruction (ICD-10) Hyperlipidemia, unspecified ?E78.5 - Hyperlipidemia, unspecified (ICD-10) Degenerative arthritis of lumbar spine ?M47.816 - Spondylosis without myelopathy or radiculopathy, lumbar region (ICD-10) Apnea, sleep ?G47.30 - Sleep apnea, unspecified (ICD-10) Allergic rhinitis, seasonal ?J30.2 - Other seasonal allergic rhinitis (ICD-10) Restless legs syndrome ?G25.81 - Restless legs syndrome (ICD-10) Depression, major ?F32.9 - Major depressive disorder, single episode, unspecified (ICD-10) Unspecified asthma, uncomplicated ?J45.909 - Unspecified asthma, uncomplicated (ICD-10) Anxiety disorder, unspecified ?F41.9 - Anxiety disorder, unspecified (ICD-10) Acquired dilation of left ventricle of heart ?I51.7 - Cardiomegaly (ICD-10) Essential (primary) hypertension ?I10 - Essential (primary) hypertension (ICD-10) Parathyroid adenoma ?D35.1 - Benign neoplasm of parathyroid gland (ICD-10) Hypothyroidism, unspecified ?E03.9 - Hypothyroidism, unspecified (ICD-10) Infection due to severe acute respiratory syndrome coronavirus 2 (SARS-CoV-2) ?U07.1 - COVID-19 (ICD-10) Surgical History (Updated 09/30/23 @ 14:30 by Abner Boyer MD) History of arthroplasty of right knee ?Z96.651 - Presence of right artificial knee joint (ICD-10) S/P total knee arthroplasty (07/30/23) ?Z96.659 - Presence of unspecified artificial knee joint (ICD-10) History of total abdominal hysterectomy (03/07/13) ?Z90.710 - Acquired absence of both cervix and uterus (ICD-10) H/O section ?Z98.891 - History of uterine scar from previous surgery (ICD-10) H/O partial thyroidectomy ?E89.0 - Postprocedural hypothyroidism (ICD-10) Family History Father Coronary artery disease Heart disease B12 deficiency Mother CHF (congestive heart failure) Atrial fibrillation Sister Hypothyroidism Sister Hypothyroidism Sister Hypothyroidism Sister Hypothyroidism Social History (Updated 09/30/23 @ 14:28 by Abner Boyer MD) Narrative: She lives at home with her . Home has no stairs. Did well after knee surgery 2 months ago with mobility. She does not smoke. Rarely drinks alcohol. What is your current living situation?: I presently have a place to live Problems where you live: no known problems In the past 12 months, utilities in danger of being shut off: no In past 12 months, lack of transportation kept you from medical appts, meetings, work, or getting things needed for daily living: no In the past 12 mos, have been you worried that your food would run out before you had money to buy more?: never true In the past 12 mos, the food you bought just didn't last and you didn't have money to buy more?: never true Smoking Status: Former smoker What tobacco products do you use: cigarettes Smoking quit date/years: >15 years ago Do you use any of these nicotine containing products: None Second hand tobacco smoke exposure: No How often do you have a drink containing alcohol: monthly or less Alcohol type: wine How many standard drinks containing alcohol do you have on a typical day: 1 or 2 How often do you have six or more drinks on one occasion: Never AUDIT-C Alcohol total score: 1 Non-prescribed substance use: denies use Caffeine: Yes (coffee 1-2) How often does anyone, including family, friends and others, physically hurt you : never How often does anyone, including family, friends and others, insult or talk down to you: never How often does anyone, including family, friends and others, scream or curse at you: never Little interest or pleasure in doing things: not at all Feeling down, depressed, or hopeless: more than half the days service: No Meds Home Medications and Allergies Home Medications Medication Instructions Recorded Confirmed Type multivitamin 1 tab PO DAILY 05/09/22 09/30/23 History albuterol sulfate 90 mcg/actuation 1 - 2 puff inhalation Q4H PRN 05/25/22 09/30/23 History aerosol inhaler aspirin 81 mg tablet,delayed 81 mg PO DAILY 05/25/22 09/30/23 History release (Adult Low Dose Aspirin) atorvastatin 20 mg tablet 20 mg PO HS 07/30/23 09/30/23 History levothyroxine 150 mcg tablet 150 mcg PO DAILY 07/30/23 09/30/23 History ropinirole 0.5 mg tablet 0.5 mg PO HS 07/30/23 09/30/23 History cetirizine 10 mg tablet 10 mg PO DAILY 09/30/23 09/30/23 History escitalopram oxalate 10 mg tablet 10 mg PO DAILY 09/30/23 09/30/23 History lorazepam 1 mg tablet 1 mg PO DAILY PRN anxiety 09/30/23 09/30/23 History phentermine 15 mg capsule 15 mg PO DAILY 09/30/23 09/30/23 History Allergies Allergy/AdvReac Type Severity Reaction Status Date / Time No Known Drug Allergies Allergy Verified 09/18/23 08:07 Exam Narrative: Exam Narrative: She is alert and appears in no distress. Mood and affect are bright. She gives her own history. Eyes normal. Oropharynx with very small airway/prominent tongue. Neck is supple without mass or adenopathy. No stridor. Respirations are clear to auscultation. Cardiovascular: S1, S2, regular rate and rhythm. No murmur gallop or rub. Abdomen: Bowel sounds active. Abdomen is soft without tenderness or mass. Extremities. Well-healed left knee scar right knee is bandaged. Trace edema bilaterally. Intact pulses and sensation and motion in her feet bilaterally. Const: Vital Signs, click to edit/add: Vital Signs - 24 hr 09/30/23 09:53 09/30/23 10:25 09/30/23 10:31 Temperature 97.4 F L Pulse Rate 63 67 64 Respiratory Rate 16 16 16 Blood Pressure 119/42 L 113/72 113/72 Pulse Oximetry 97 98 98 Oxygen Delivery Me thod Room Air Nasal Cannula Nasal Cannula Oxygen Flow Rate 2 2 09/30/23 13:31 09/30/23 13:36 09/30/23 13:41 Temperature 97.8 F Pulse Rate 72 67 65 Respiratory Rate 16 16 16 Blood Pressure 99/49 L 106/54 L 116/64 Pulse Oximetry 96 97 97 Oxygen Delivery Me thod Nasal Cannula Nasal Cannula Nasal Cannula Oxygen Flow Rate 4 4 4 09/30/23 13:46 09/30/23 13:51 09/30/23 13:56 Temperature Pulse Rate 64 66 63 Respiratory Rate 16 16 16 Blood Pressure 122/72 123/74 129/70 Pulse Oximetry 97 97 95 Oxygen Delivery Me thod Nasal Cannula Nasal Cannula Room Air Oxygen Flow Rate 4 2 09/30/23 13:59 Temperature 97.7 F Pulse Rate 63 Respiratory Rate 16 Blood Pressure 141/87 H Pulse Oximetry 94 Oxygen Delivery Me thod Room Air Oxygen Flow Rate Documenting provider has reviewed patient's vital signs: yes Assessment and Plan Assessment and plan (1) History of arthroplasty of right knee: Problem comment: 09/30/2023. Dr. Lamar. No complications. Routine postoperative care, therapy, pain control. Status: Acute (2) Apnea, sleep: Problem comment: Home CPAP Status: Chronic (3) Essential (primary) hypertension: Problem comment: Resume home blood pressure medicine as blood pressure requires Status: Chronic (4) Obesity: Problem comment: BMI 64.3, obese class 3 Status: Chronic (5) Anxiety disorder, unspecified: Problem comment: Caution with benzodiazepines plus opioids. Status: Chronic Plan 53-year-old female status post right hip arthroplasty. Anticipate uncomplicated recovery and discharge to home with outpatient follow-up as she did 2 months ago with a successful left knee arthroplasty. Total time spent today is 35 minutes, 25 minutes in coordination of care and discussing with patient other providers ongoing evaluation management of knee arthroplasty and postop medical problem management
[2023-09-30] MEDS: HYDROmorphone 0.5 mg/0.5 ml inj IVP ×3 (15:00→21:01)
[2023-09-30] MEDS: OXYCODONE 5 MG TABLET PO ×3 (15:41→22:56)
--- NOTE | 2023-09-30 15:42 | PC.NURSE ---
Patient arrived to unit from PACU at 1415. Patient A&O and VSS. CPAP in room. Patient O2 maintaining on RA. Had the urge to urinate upon arrival so patient Ax2 with gait belt & walker to commode with no void. Underwear were incontinent so a brief was applied. Patient up in recliner with legs elevated, cryocuff on RLE and bilat plexi pulses. Patient denies any nausea, tolerating ice chips. Reports 5/10 pain in RLE so x1 dose IV Dilaudid given. LR infusing at 75 mL/hr.
[2023-09-30] MEDS: POTASSIUM CHLORIDE 10 MEQ CAPSULE ER 20 MEQ PO (17:23)
[2023-09-30] MEDS: CEFAZOLIN 3 GM in 0.9 % SODIUM CHLORIDE Mini-bag 100 ML IVPB (17:25)
[2023-09-30] MEDS: ASPIRIN 81 MG TABLET EC PO (20:14)
[2023-09-30] MEDS: SENNOSIDES 1 TAB TABLET 2 TAB PO (20:14)
[2023-09-30] MEDS: ROPINIROLE HCL 1 MG TABLET 0.5 MG PO (20:15)
[2023-09-30] MEDS: ATORVASTATIN 10 MG TABLET 20 MG PO (20:15)
[2023-09-30] MEDS: FLUTICASONE 110 MCG INHALER 2 PUFF IH (20:17)
[2023-09-30] MEDS: lisinopriL 20 MG TABLET PO (21:02)
--- NOTE | 2023-10-01 00:16 | PC.NURSE ---
VSS, RA. C/o of right foot pain of 7-8- some relief w/ 0.5 mg IV dilaudid. CMS intact. Tolerating regular diet, drinking well. Voided x3, last BM yesterday, 09/30- pt educated on narcotics and constipation. Up with SB assist- walker. Moving well. Dressing on right knee, c/d/i, some bruising noted to lateral knee- cryo cuff on. PIV- SL'd. Will continue to monitor, follow POC, and keep pt and family updated. Tammy Noonan RN
[2023-10-01] MEDS: HYDROmorphone 0.5 mg/0.5 ml inj IVP (00:51)
[2023-10-01] MEDS: CEFAZOLIN 3 GM in 0.9 % SODIUM CHLORIDE Mini-bag 100 ML IVPB (01:37)
[2023-10-01] MEDS: OXYCODONE 5 MG TABLET PO ×3 (02:51→09:44)
[2023-10-01 03:00] VITALS: BP 137/69; PULSE 67; RESP 20; TEMP 36.6; O2SAT 93
[2023-10-01] MEDS: ACETAMINOPHEN 500 MG TABLET 1000 MG PO ×2 (04:12→10:21)
[2023-10-01] MEDS: LEVOTHYROXINE 75 MCG TABLET 150 MCG PO (06:30)
--- NOTE | 2023-10-01 06:41 | PC.NURSE ---
END OF SHIFT NOTE: PT PLEASANT AND COOPERATIVE WITH CARES. A&Ox3. PT DENIES CP, SOB, N/V. AMBULATES WITH WALKER, GB, SBA. VSS ON RA; AFEBRILE. CRYO CUFF TO RIGHT KNEE. PT RATES RIGHT KNEE AND FOOT PAIN 7/10 WITH SOME RELIEF FROM SCHEDULED AND PRN PAIN MEDS. HX OF KIKO; PT WORE CPAP DURING HS. PT UP IN CHAIR THIS MORNING. CALL LIGHT WITHIN PT?S REACH.?
[2023-10-01 06:43] LABS: Basophils Percent Auto 0.1 % (0.0-3.0); Eosinophils Percent Auto 0.1 % (0.0-7.0); Hematocrit 35.2 % (33.0-51.0); Hemoglobin* 11.3 gm/dL (12.0-16.0); Immature Granulocytes Pct Auto 0.8 %; Mean Corpuscular HGB Conc 32 gm/dL (32-36); Mean Corpuscular Hemoglobin 28 pg (26-34); Mean Corpuscular Volume 87 fL (80-100); Monocytes Percent Auto 10.9 % (0.0-11.0); Neutrophils Percent Auto 73.1 % (42.0-72.0); Platelet Count* 372 K/uL (140-440); RDW Coefficient of Variation % 12.6 % (11.5-15.5); Red Blood Count 4.05 m/uL (4.00-5.20); White Blood Count* 17.02 K/uL (4.50-11.00)
[2023-10-01 06:47] LABS: Slide Review Reflex No
[2023-10-01 06:59] LABS: Potassium* 4.4 mmol/L (3.6-5.1); Sodium* 136 mmol/L (135-149)
[2023-10-01 07:02] LABS: Blood Urea Nitrogen* 24 mg/dL (7-30); Creatinine* 0.6 mg/dL (0.5-1.5); Est. Creatinine Clearance* 87.64; Estimated Glomerular Filt Rate 106 ml/min
[2023-10-01 07:08] LABS: INR 1.01 (0.91-1.10); Prothrombin Time 13.9 Seconds
[2023-10-01 07:45] VITALS: BP 129/63; PULSE 74; RESP 20; TEMP 36.6; O2SAT 96
--- NOTE | 2023-10-01 08:01 | PM.ORPN ---
Subjective Subjective Time Seen by Provider: 08:01 Date Seen: 10/01/23 Principal diagnosis: Status post right knee replacement Interval history: Miguelina is comfortable in the recliner currently. Her right foot is more uncomfortable than her right knee. She has discomfort over the dorsum of her foot. Ortho Exam Narrative Exam Narrative: Alert and oriented x3. Patient is in no acute distress. Converses without labored breathing. Hearing is grossly intact. Ambulates with a walker. Examination of the right knee shows ecchymosis is present. The dressing is intact. Minimal edema. Effusion is present. Calf is soft and nontender. She is able to straight leg raise. CMS intact right lower extremity. Examination of her right foot shows no ecchymosis or edema. Mildly tender to palpation over the dorsum of the foot. Const Vital Signs, click to edit/add: Vital Signs - 24 hr 09/30/23 09:53 09/30/23 10:25 09/30/23 10:31 Temperature 97.4 F L Pulse Rate 63 67 64 Pulse Rate [Right Pulse Oximeter] Respiratory Rate 16 16 16 Blood Pressure 119/42 L 113/72 113/72 Blood Pressure [Right Arm] Pulse Oximetry 97 98 98 Oxygen Delivery Method Room Air Nasal Cannula Nasal Cannula Oxygen Flow Rate 2 2 09/30/23 13:31 09/30/23 13:36 09/30/23 13:41 Temperature 97.8 F Pulse Rate 72 67 65 Pulse Rate [Right Pulse Oximeter] Respiratory Rate 16 16 16 Blood Pressure 99/49 L 106/54 L 116/64 Blood Pressure [Right Arm] Pulse Oximetry 96 97 97 Oxygen Delivery Method Nasal Cannula Nasal Cannula Nasal Cannula Oxygen Flow Rate 4 4 4 09/30/23 13:46 09/30/23 13:51 09/30/23 13:56 Temperature Pulse Rate 64 66 63 Pulse Rate [Right Pulse Oximeter] Respiratory Rate 16 16 16 Blood Pressure 122/72 123/74 129/70 Blood Pressure [Right Arm] Pulse Oximetry 97 97 95 Oxygen Delivery Method Nasal Cannula Nasal Cannula Room Air Oxygen Flow Rate 4 2 09/30/23 13:59 09/30/23 14:15 09/30/23 14:15 Temperature 97.7 F 97.2 F L 97.2 F L Pulse Rate 63 64 Pulse Rate [Right Pulse Oximeter] 64 Respiratory Rate 16 16 16 Blood Pressure 141/87 H Blood Pressure [Right Arm] 121/75 121/75 Pulse Oximetry 94 96 Oxygen Delivery Method Room Air Room Air Room Air Oxygen Flow Rate 09/30/23 14:30 09/30/23 14:45 09/30/23 15:00 Temperature 97 F L 96.7 F L 97 F L Pulse Rate Pulse Rate [Right Pulse Oximeter] 70 66 68 Respiratory Rate 16 18 16 Blood Pressure Blood Pressure [Right Arm] 113/60 116/71 119/70 Pulse Oximetry 96 96 94 Oxygen Delivery Method Room Air Room Air Room Air Oxygen Flow Rate 09/30/23 15:15 09/30/23 15:35 09/30/23 15:45 Temperature 97.1 F L 97.2 F L 96.6 F L Pulse Rate 64 Pulse Rate [Right Pulse Oximeter] 75 78 Respiratory Rate 16 16 16 Blood Pressure Blood Pressure [Right Arm] 136/71 121/75 142/76 H Pulse Oximetry 94 94 Oxygen Delivery Method Room Air Room Air Room Air Oxygen Flow Rate 2 09/30/23 16:15 09/30/23 17:15 09/30/23 18:15 Temperature 96.6 F L Pulse Rate Pulse Rate [Right Pulse Oximeter] 76 78 78 Respiratory Rate 16 16 16 Blood Pressure Blood Pressure [Right Arm] 152/79 H 140/69 H 128/70 Pulse Oximetry 92 93 93 Oxygen Delivery Method Room Air Room Air Room Air Oxygen Flow Rate 09/30/23 19:15 09/30/23 20:15 09/30/23 22:49 Temperature 97.4 F L 97.7 F Pulse Rate Pulse Rate [Right Pulse Oximeter] 86 81 80 Respiratory Rate 16 22 Blood Pressure Blood Pressure [Right Arm] 132/73 141/77 H 144/76 H Pulse Oximetry 93 93 Oxygen Delivery Method Room Air Room Air Oxygen Flow Rate 10/01/23 03:00 Temperature 97.9 F Pulse Rate Pulse Rate [Right Pulse Oximeter] 67 Respiratory Rate 20 Blood Pressure Blood Pressure [Right Arm] 137/69 Pulse Oximetry 93 Oxygen Delivery Method Room Air Oxygen Flow Rate Assessment and Plan Assessment and plan (1) Status post right knee replacement: Problem details: 09/30/2023 Status: Acute Assessment and Plan: Plan for discharge is today to home if they meet discharge criteria. DVT prophylaxis includes aspirin 81 mg twice daily x1 month, Prasanna stockings x1 month may remove for 1 hr per day, frequent ambulation Remove dressing in 1 week. Observe wound and phone Orthopedics with any questions or concerns Return to clinic in 1 week for a wound check Return to clinic in 6 weeks with surgeon Minimize narcotic use. Wean off and discontinue soon as possible. Activities as tolerated. No strenuous activity. Outpatient physical therapy as scheduled. Ice and elevate the operative extremity. No restriction on ice. Her right foot discomfort is likely due to the foot bolster used during surgery that attaches to the bed to keep the foot and leg in place during the procedure. This will improve with time. She will let us know if her symptoms do not improve.
[2023-10-01] MEDS: AMLODIPINE 5 MG TABLET PO (08:56)
[2023-10-01] MEDS: MULTIVITAMIN/MINERALS 1 TABLET 1 TAB PO (08:56)
[2023-10-01] MEDS: POTASSIUM CHLORIDE 10 MEQ CAPSULE ER 20 MEQ PO (08:56)
[2023-10-01] MEDS: FLUTICASONE 110 MCG INHALER 2 PUFF IH (08:56)
[2023-10-01] MEDS: ASPIRIN 81 MG TABLET EC PO (08:56)
[2023-10-01] MEDS: hydroCHLOROthiazide 25 MG TABLET PO (08:56)
[2023-10-01] MEDS: ESCITALOPRAM 10 MG TABLET PO (08:56)
[2023-10-01] MEDS: CETIRIZINE HCL 10 MG TABLET PO (08:56)
[2023-10-01] MEDS: lisinopriL 20 MG TABLET PO (08:56)
[2023-10-01] MEDS: SENNOSIDES 1 TAB TABLET 2 TAB PO (08:59)
--- NOTE | 2023-10-01 11:07 | PC.NURSE ---
Eval by Amaris JEROME. Eval by PT Barak and OT Sheela. Please see eMar for meds provided. Pain 7 out of 10. RTKA with Dr. Lamar, VS wnl and mepilex dressing CDI. Pt verbalized understanding of d/c diagnosis, new prescriptions, home meds, f/up appts and sx to report urgently to physician. D/C'ed via WC to own home w/her cryo duff & personal belongings at 1041am. Pt's Derik provided transportation.
== END 2023-10-01 10:41 | disposition home or self-care (01) ==
LOC: OR 08:41 → MEDSURG 08:42
PROVIDERS: PCP Family Medicine; Visit Provider Orthopaedic Surgery
PROC: (CPT 27447; principal; 2023-09-30 11:00)
DX: M17.11 Unilateral primary osteoarthritis, right knee (principal); G89.18 Other acute postprocedural pain; Z68.44 Body mass index [BMI] 60.0-69.9, adult; E66.9 Obesity, unspecified; G47.30 Sleep apnea, unspecified; I10 Essential (primary) hypertension; F41.9 Anxiety disorder, unspecified; M79.671 Pain in right foot
CPT/HCPCS: 27447; 01402; 36415; 64447; 64454; 73560; 76942; 82565; 84132; 84295; 84520; 85025; 85610; 97110; 97116; 97161; 97165; 97530; A9153; A9270; C1776; J0690; J1100; J1170; J2250; J2704; J2795; J3010; J7120

== ENCOUNTER 2023-10-12 15:04 | Emergency (ER) | payer BC, SELFPAY ==
[2023-10-12 15:20] VITALS: BP 100/63; PULSE 69; RESP 18; TEMP 36.4; O2SAT 96
--- NOTE | 2023-10-12 15:38 | CRLHL7_ITS ---
For Patients: As a result of the Century Cures Act, medical imaging exams and procedure reports are released immediately into your electronic medical record. You may view this report before your referring provider. If you have questions, please contact your health care provider. INDICATION: Postop complication. Knee surgery on 09/30/2023. TECHNIQUE: Two views of the right knee. COMPARISON: Right knee radiographs 09/30/2023. FINDINGS: A right knee arthroplasty is in place in anatomic alignment. No evidence of periprosthetic fracture or dislocation. There is a large suprapatellar knee joint effusion containing a small focus of gas. Overall gas density has nearly completely resolved compared to the previous exam. IMPRESSION: 1. Right knee arthroplasty in anatomic alignment without radiographic evidence of hardware complication. 2. Large suprapatellar knee joint effusion. Dictated by Li Hassan MD @ 10/12/2023 4:49:44 PM (Electronically Signed)
--- NOTE | 2023-10-12 15:41 | ED_ITS ---
HPI - General Adult General Chief complaint: Post Op Complication Stated complaint: knee pain Time Seen by Provider: 10/12/23 15:05 History of Present Illness HPI narrative: Patient is a 53-year-old white obese female who had her right knee replaced couple weeks ago. She is doing well for a week and then subsequently felt like ?something is moving around in a ?. She is in a good amount of discomfort at this time around her knee. She has no other specific limitations, no shortness of breath, no chest pain, no change in leg swelling. She has been doing some physical therapy. No redness, erythema or drainage of the knee. Related Data Home Medications Medication Instructions Recorded Confirmed multivitamin 1 tab PO DAILY 05/09/22 09/30/23 albuterol sulfate 90 mcg/actuation 1 - 2 puff inhalation Q4H PRN 05/25/22 09/30/23 aerosol inhaler aspirin 81 mg tablet,delayed 81 mg PO DAILY 05/25/22 09/30/23 release (Adult Low Dose Aspirin) atorvastatin 20 mg tablet 20 mg PO HS 07/30/23 09/30/23 ropinirole 0.5 mg tablet 0.5 mg PO HS 07/30/23 09/30/23 cetirizine 10 mg tablet 10 mg PO DAILY 09/30/23 09/30/23 lorazepam 1 mg tablet 1 mg PO DAILY PRN anxiety 09/30/23 09/30/23 phentermine 15 mg capsule 15 mg PO DAILY 09/30/23 09/30/23 Previous Rx's Medication Instructions Recorded cyanocobalamin (vitamin B-12) 1,000 mcg IM MONTHLY #10 mL 04/09/23 1,000 mcg/mL injection solution amlodipine 5 mg tablet 5 mg PO DAILY #4 tabs 04/12/23 hydrochlorothiazide 25 mg tablet 25 mg PO DAILY #4 tabs 04/12/23 lisinopril 20 mg tablet 20 mg PO BID #8 tabs 04/12/23 potassium chloride 20 mEq 20 meq PO BID #8 tabs 04/12/23 tablet,extended release(part/cryst) alprazolam 1 mg tablet 1 mg PO TID PRN anxiety #20 tabs 05/09/23 acetaminophen 500 mg capsule 500 - 1,000 mg (1 - 2 x 500 mg) PO 07/30/23 Q6H PRN pain #100 caps fluticasone propionate 110 2 puff inhalation BID #12 grams 08/09/23 mcg/actuation HFA aerosol inhaler aspirin 81 mg chewable tablet 81 mg PO BID for DVT prophylaxis 09/30/23 (Aspirin Childrens) 30 days #60 tabs sennosides 8.6 mg tablet (Senna 17.2 mg (2 x 8.6 mg) PO BID PRN 09/30/23 Lax) constipation #100 tabs oxycodone 5 mg tablet 2.5 - 5 mg (0.5 - 1 x 5 mg) PO 10/08/23 Q4-6H PRN Pain #42 tabs escitalopram oxalate 10 mg tablet 10 mg PO DAILY #90 tabs 10/11/23 levothyroxine 150 mcg tablet 150 mcg PO DAILY #90 tabs 10/11/23 Allergies Allergy/AdvReac Type Severity Reaction Status Date / Time No Known Drug Allergies Allergy Verified 10/12/23 15:20 Review of Systems Status of ROS: Reports: 6 or more systems reviewed and unremarkable except as noted in History and below [facility] Medical History Vitamin B12 deficiency ?E53.8 - Deficiency of other specified B group vitamins (ICD-10) Cholelithiasis ?K80.20 - Calculus of gallbladder without cholecystitis without obstruction (ICD-10) Hyperlipidemia, unspecified ?E78.5 - Hyperlipidemia, unspecified (ICD-10) Degenerative arthritis of lumbar spine ?M47.816 - Spondylosis without myelopathy or radiculopathy, lumbar region (ICD-10) Apnea, sleep ?G47.30 - Sleep apnea, unspecified (ICD-10) Allergic rhinitis, seasonal ?J30.2 - Other seasonal allergic rhinitis (ICD-10) Restless legs syndrome ?G25.81 - Restless legs syndrome (ICD-10) Depression, major ?F32.9 - Major depressive disorder, single episode, unspecified (ICD-10) Unspecified asthma, uncomplicated ?J45.909 - Unspecified asthma, uncomplicated (ICD-10) Anxiety disorder, unspecified ?F41.9 - Anxiety disorder, unspecified (ICD-10) Acquired dilation of left ventricle of heart ?I51.7 - Cardiomegaly (ICD-10) Essential (primary) hypertension ?I10 - Essential (primary) hypertension (ICD-10) Parathyroid adenoma ?D35.1 - Benign neoplasm of parathyroid gland (ICD-10) Hypothyroidism, unspecified ?E03.9 - Hypothyroidism, unspecified (ICD-10) Infection due to severe acute respiratory syndrome coronavirus 2 (SARS-CoV-2) ?U07.1 - COVID-19 (ICD-10) Surgical History History of arthroplasty of right knee ?Z96.651 - Presence of right artificial knee joint (ICD-10) S/P total knee arthroplasty (07/30/23) ?Z96.659 - Presence of unspecified artificial knee joint (ICD-10) History of total abdominal hysterectomy (03/07/13) ?Z90.710 - Acquired absence of both cervix and uterus (ICD-10) H/O section ?Z98.891 - History of uterine scar from previous surgery (ICD-10) H/O partial thyroidectomy ?E89.0 - Postprocedural hypothyroidism (ICD-10) Family History Father Coronary artery disease Heart disease B12 deficiency Mother CHF (congestive heart failure) Atrial fibrillation Sister Hypothyroidism Sister Hypothyroidism Sister Hypothyroidism Sister Hypothyroidism Social History Narrative: She lives at home with her . Home has no stairs. Did well after knee surgery 2 months ago with mobility. She does not smoke. Rarely drinks alcohol. What is your current living situation?: I presently have a place to live Problems where you live: no known problems In the past 12 months, utilities in danger of being shut off: no In past 12 months, lack of transportation kept you from medical appts, meetings, work, or getting things needed for daily living: no In the past 12 mos, have been you worried that your food would run out before you had money to buy more?: never true In the past 12 mos, the food you bought just didn't last and you didn't have money to buy more?: never true Smoking Status: Former smoker What tobacco products do you use: cigarettes Smoking quit date/years: >15 years ago Do you use any of these nicotine containing products: None Second hand tobacco smoke exposure: No How often do you have a drink containing alcohol: monthly or less Alcohol type: wine How many standard drinks containing alcohol do you have on a typical day: 1 or 2 How often do you have six or more drinks on one occasion: Never AUDIT-C Alcohol total score: 1 Non-prescribed substance use: denies use Caffeine: Yes (coffee 1-2) How often does anyone, including family, friends and others, physically hurt you : never How often does anyone, including family, friends and others, insult or talk down to you: never How often does anyone, including family, friends and others, scream or curse at you: never Little interest or pleasure in doing things: not at all Feeling down, depressed, or hopeless: more than half the days service: No Exam Narrative: Exam Narrative: Objective: Vital signs show no fever She has fairly good range motion of the knee, there is no redness or erythema around the wound site, distal CMS appears intact, no palpable calf pain, but the patient does have extremely large legs. Distal CMS appears intact Const: Vital Signs, click to edit/add: Vital Signs - 24 hr 10/12/23 15:20 Temperature 97.6 F Pulse Rate [Pulse Oximeter] 69 Respiratory Rate 18 Blood Pressure [Ri ght Forearm] 100/63 Pulse Oximetry 96 Oxygen Delivery Me thod Room Air Course Vital Signs Vital signs: Initial Vital Signs Temperature 97.6 F 10/12/23 15:20 Temperature Source Temporal Artery Scan 10/12/23 15:20 Pulse Rate 69 10/12/23 15:20 Respiratory Rate 18 10/12/23 15:20 Blood Pressure 100/63 10/12/23 15:20 Blood Pressure Mean 75 10/12/23 15:20 Blood Pressure Position Sitting 10/12/23 15:20 Pulse Oximetry 96 10/12/23 15:20 Oxygen Delivery Method Room Air 10/12/23 15:20 Vital Signs Temperature 97.6 F 10/12/23 15:20 Pulse Rate 69 10/12/23 15:20 Respiratory Rate 18 10/12/23 15:20 Blood Pressure 100/63 10/12/23 15:20 Pulse Oximetry 96 10/12/23 15:20 Oxygen Delivery Method Room Air 10/12/23 15:20 Temperature 97.6 F 10/12/23 15:20 Pulse Rate 69 10/12/23 15:20 Respiratory Rate 18 10/12/23 15:20 Blood Pressure 100/63 10/12/23 15:20 Pulse Oximetry 96 10/12/23 15:20 Oxygen Delivery Method Room Air 10/12/23 15:20 Medical Decision Making MDM Narrative Medical decision making narrative: [age] year white female status post knee replacement a couple of weeks with now increasing pain in the knee. Will check an x-ray. Patient may need a knee immobilizer and follow up with Ortho on Saturday for reassessment. No evidence of infection or other abnormality at this time. No drainage from the wound no wound infection noted. Addendum 4:00 p.m.: The patient is x-ray by my review looks unremarkable the replacement products look in place. She is able to toe walk with her leg straight and will get her a knee immobilizer for couple of days till she sees Alisha our nurse PA in orthopedics for follow-up. She already has an appointment. She can use oxycodone and Tylenol as needed. And recheck sooner problems or concerns. Discharge Plan Discharge Clinical Impression: History of total right knee replacement, Knee pain, right Patient Disposition: Home w/ Parent or Adult Condition: Stable Additional Instructions: May continue the oxycodone and Tylenol as needed, knee immobilizer will be placed for a couple of days, follow-up with Alisha in the orthopedic office on Saturday as planned. Return to ED sooner problems or concerns. Activity Level: Light activity Discharge Diet: Regular Prescriptions: No Action albuterol sulfate 90 mcg/actuation HFA aerosol inhaler 1 - 2 puff inhalation Q4H PRN Patient Comments: aspirin [Adult Low Dose Aspirin] 81 mg tablet,delayed release (DR/EC) 81 mg PO DAILY Hold Instructions: Resume on 08/29/23. once you are done taking aspirin twice daily, restart the daily dose atorvastatin 20 mg tablet 20 mg PO HS ropinirole 0.5 mg tablet 0.5 mg PO HS acetaminophen 500 mg capsule 500 - 1,000 mg PO Q6H MDD 4000mg per day PRN (Reason: pain) Qty: 100 0RF cetirizine 10 mg tablet 10 mg PO DAILY phentermine 15 mg capsule 15 mg PO DAILY Rx Instructions: must administer 2 hours after breakfast lorazepam 1 mg tablet 1 mg PO DAILY PRN (Reason: anxiety) sennosides [Senna Lax] 8.6 mg Tablet 17.2 mg PO BID PRN (Reason: constipation) Qty: 100 0RF aspirin [Aspirin Childrens] 81 mg tablet,chewable 81 mg PO BID 30 Days Qty: 60 0RF multivitamin Tablet 1 tab PO DAILY cyanocobalamin (vitamin B-12) 1,000 mcg/mL solution 1,000 mcg IM MONTHLY Qty: 10 1RF amlodipine 5 mg tablet 5 mg PO DAILY Qty: 4 0RF hydrochlorothiazide 25 mg tablet 25 mg PO DAILY Qty: 4 0RF lisinopril 20 mg tablet 20 mg PO BID Qty: 8 0RF potassium chloride 20 mEq tablet,ER particles/crystals 20 meq PO BID Qty: 8 0RF alprazolam 1 mg tablet 1 mg PO TID PRN (Reason: anxiety) Qty: 20 0RF fluticasone propionate 110 mcg/actuation HFA aerosol inhaler 2 puff inhalation BID Qty: 12 8RF oxycodone 5 mg tablet 2.5 - 5 mg PO Q4-6H MDD 6 tabs per day PRN (Reason: Pain) Qty: 42 0RF Rx Instructions: Minimize. Discontinue as soon as possible levothyroxine 150 mcg tablet 150 mcg PO DAILY Qty: 90 3RF escitalopram oxalate 10 mg tablet 10 mg PO DAILY Qty: 90 3RF Follow Up/Referrals: Adi Brown MD [Primary Care Provider] - Stand Alone Forms: [facility] Info Instructions
== END 2023-10-12 16:37 | disposition home or self-care (01) ==
LOC: ED 16:17
PROVIDERS: Emergency Provider Family Medicine; PCP Family Medicine
DX: M25.561 Pain in right knee (principal); Z96.651 Presence of right artificial knee joint
CPT/HCPCS: 73560; 99283; 99284

== ENCOUNTER 2024-06-29 11:03 | Outpatient (CLI) | payer BC, SELFPAY ==
--- OUTSIDE RECORDS SUMMARY | 2024-06-29 11:09 | XMS_ITS | Clinical Summary ---
Author Organization [facility] Address [address] [place] [address] Care Team Providers Care Canvas Worker Apprentice Name Role Phone Elsewhere, Pcp Primary Care Provider Unavailabl e Source Comments Patient records contain information from all sites at [facility]. For routine questions regarding patient records, call [phone] during business hours, M-F 8:00 AM - 5:00 PM Central Time. Record requests for emergency care only can be directed to [phone] at any time.[facility] Allergies No known active allergies Medications Medication Sig Dispensed Refills Start Date End Date Status potassium chloride (KLOR-CON SPRINKLE) 10 mEq ER sprinkle capsule Take 1 capsule by mouth 2 (two) times a day. 04/05/2015 Active rOPINIRole (REQUIP) 0.5 mg tablet Take 1 tablet by mouth at bedtime. 04/05/2015 Active lisinopriL (PRINIVIL,ZESTRI L) 20 mg tablet TAKE ONE TABLET BY MOUTH TWICE A DAY 180 tablet 3 12/28/2019 Active calcium carbonate (OS-AUSTIN) 1,250 mg (500 mg calcium) tablet Take 1,250 mg by mouth. Active LORazepam (Ativan) 1 mg tablet Take 1-2 tablets (1-2 mg total) by mouth 2 (two) times a day as needed for anxiety (as needed). Anxiety. 30 tablet 1 04/24/2020 Active cetirizine (ZyrTEC) 10 mg tablet Take 10 mg by mouth daily. Active amLODIPine (Norvasc) 5 mg tablet Take 1 tablet (5 mg total) by mouth daily. 90 tablet 3 09/23/2020 Active cyanocobalamin (VITAMIN B12) 1,000 mcg/mL injection Inject 1 mL (1,000 mcg total) intramuscularly every 30 (thirty) days. 3 mL 3 12/09/2020 Active phentermine-topi ramate (Qsymia) 7.5-46 mg capsule, ER multiphase 24 hr ext release capsule Take 1 capsule by mouth every morning before breakfast. 30 capsule 5 12/21/2020 Active atorvastatin (LIPITOR) 20 mg tablet TAKE ONE TABLET BY MOUTH AT BEDTIME 90 tablet 3 01/12/2021 Active hydroCHLOROthiaz markel (HYDRODIURIL) 25 mg tablet TAKE ONE TABLET BY MOUTH ONCE DAILY 90 tablet 02/23/2021 Active Flovent HFA 110 mcg/actuation inhaler TAKE 2 PUFFS TWO TIMES A DAY - RINSE MOUTH AFTER EACH USE AND SPIT OUT 36 g 3 05/26/2021 Active aspirin 81 mg chewable tablet Chew 81 mg daily. 05/25/2022 Ac tive levothyroxine (SYNTHROID, LEVOTHROID) 150 mcg tablet Take 150 mcg by mouth daily. 10/11/2022 Active phentermine 15 mg capsule Take 15 mg by mouth daily. 02/21/2021 Active Active Problems Problem Noted Date Diagnosed Date Xanthelasma Left Upper Eyelid 03/15/2019 Restless Leg Syndrome 02/20/2019 Hypothyroidism Acquired 02/20/2019 Hypercholesterolemia 06/30/2018 Apnea Sleep Obstructive 06/30/2018 Overview (02/20/2019): 6 cm H2o Morbid Severe Obesity Due To Excess Calories Hypertension Essential Primary 06/30/2018 Pain Knee Bilateral 06/30/2018 Immunizations Name Administration Dates Next Due Influenza (IM) Preservative Free 10/24/2010 Influenza, Unspecified 08/26/2018 Tdap 07/15/2009 influenza vaccine quad (FLUZ ONE/FLUARIX) (6 months and older)(PF) 08/23/2015 Family History Medical History Relation Name Comments Heart attack Father Bradycardia Mother Hypertension Mother Asthma Sister 5 sisters Diabetes Sister 5 sisters Vitamin B12 deficiency Sister 5 sisters Relation Name Status Comments Brother 6 brothers Alive Father Alive heart attack Mother Alive Sister 5 sisters Alive Social History Tobacco Use Types Packs/Day Years Used Date Smoking Tobacco: Never Smokeless Tobacco: Never PHQ-2 Answer Date Recorded PHQ-2 Score 0 04/22/2019 Nutrition Answer Date Recorded Nutrition: EVOO Fat Source Unknown 01/11 Nutrition: Servings of Fruits/Vegetables per Day Not on file 01/11/2021 Dental Answer Date Recorded Dental: Regular Dentist Unknown 01/12/20 21 Sex and Gender Information Value Date Recorded Sex Assigned at Not on file Gender Identity Female 06/30/2018 8:07 AM CDT Sexual Orientation Not on file Last Filed Vital Signs Vital Sign Reading Time Taken Comments Blood Pressure 125/58 04/03/2023 8:15 AM CDT Pulse 67 04/03/2023 8:15 AM CDT Temperature 37.1 ??C (98.8 ??F) 04/03/2023 1:58 AM CD T Respiratory Rate 21 04/03/2023 8:15 AM CDT Oxygen Saturation 96% 04/03/2023 8:15 AM CDT Inhaled Oxygen Concentration - - Weight 179 kg (393 lb 8.3 oz) 04/03/2023 1:27 AM CDT Height 162.7 cm (5' 4.06) 02/20/2019 2:13 PM CD T Body Mass Index 67.43 02/20/2019 2:13 PM CDT Plan of Treatment Health Maintenance Due Date Last Done Comments CT Colonography 1968 Cologuard 1968 Colonoscopy 1968 Colorectal Cancer Screening 1968 FIT 1968 HIV Screening 1968 Hepatitis C Screening 1968 Mammogram 1968 Office Visit for Blood Pressure Check / Re-check 1968 Hepatitis B Vaccines (1 of 3 - 19+ 3-dose series) 1987 Zoster Vaccines (1 of 2) 2018 Thyroid Stimulating Hormone (TSH) test for thyroid function 11/05/2021 11/05/2020, 09/02/2019, 08/26/2018, Additional history exists COVID-19 Vaccine ( season) 2023 03/26/2021, 03/05/2021 Depression Screening (Annual PHQ-2) 11/11/2023 Cervical Cancer Screening 02/21/2024 02/20/2019, 10/2019 Creatinine Level (Kidney Function Test) 04/03/2024 04/03/2023, 01/05/2023, 11/14/2020, Additional history exists Potassium Level 04/03/2024 04/03/2023, 02/2021, 11/14/2020, Additional history exists Sodium Level 04/03/2024 04/03/2023, 02/2021, 11/14/2020, Additional history exists Influenza Vaccine (#1) 2024 , 08/26/2018, 08/23/2015, Additional history exists Lipid (Cholesterol) Screening 09/02/2024 09/02/2019, 08/26/2018, 06/30/2018, Additional history exists Fasting Glucose for Diabetes Screening 04/03/2026 04/03/2023, 11/14/2020, 11/12/2020, Additional history exists DTaP,Tdap,and Td Vaccines (3 - Td or Tdap) 01/13/2032 01/12/2022, 07/15/2009 Pneumococcal vaccine (0-64 years) Aged Out No longer eligible based on patient's age to complete this topic Procedures Procedure Name Priority Date/Time Associated Diagnosis Comments BASIC METABOLIC PANEL, S/P STAT 04/03/2023 1:37 AM CDT LIPID PANEL, S Routine 09/02/2019 1:32 PM CDT Hypercholesterolemia THYROID-STIMULATING HORMONE-SENSITIVE (S-TSH) Routine 09/02/2019 1:32 PM CDT Hypothyroidism THINPREP W/HPV CO-TEST DIAGNOSTIC Routine 02/20/2019 3:54 PM CDT Pap Smear Examination from Last 3 Months or Most Recently Relevant to Health Maintenance Results * (ABNORMAL) Basic Metabolic Panel (04/03/2023 1:37 AM CDT) Potassium, P 3.4(L) 3.6 - 5.2 mmol/L 04/03/2023 2:03 AM CDT NPRG Sodium, P 137 135 - 145 mmol/L 04/03/2023 2:03 AM CDT NPRG Chloride, P 98 98 - 107 mmol/L 04/03/2023 2:03 AM CDT NPRG Bicarbonate, P 23 22 - 29 mmol/L 04/03/2023 2:03 AM CDT NPRG Anion Gap, P 16(H) 7 - 15 04/03/2023 2:03 AM CDT NPRG BUN (Blood Urea Nitrogen), P 25(H) 6 - 21 mg/dL 04/03/2023 2:03 AM CDT NPRG Creatinine 0.86 0.59 - 1.04 mg/dL 04/03/2023 2:03 AM CDT NPRG Estimated GFR (eGFR) 80 >=60 mL/min/BSA 04/03/2023 2:03 AM CDT NPRG Comment: Estimated GFR calculated using the 2020 CKD_EPI creatinine equation. Calcium, Total, P 9.2 8.6 - 10.0 mg/dL 04/03/2023 2:03 AM CDT NPRG Glucose, P 193(H) 70 - 140 mg/dL 04/03/2023 2:03 AM CDT NPRG Blood (Blood, Venous) 04/03/2023 1:37 AM CDT 04/03/2023 1:41 AM CDT Valerie Slaughter M.D., M.P.H. LAB BLOOD A DD-ON [facility] [address] [place] [address], [facility] NPRG [facility] [address] [place] [address] * (ABNORMAL) Lipid Panel (09/02/2019 1:32 PM CDT) [facility] Cholesterol, Total 191 mg/dL 2018 5:18 PM CDT [facility] Comment: ----REFERENCE VALUE---- Desirable: < 200 Borderline high: 200 - 239 High: > or = 240 Triglycerides 219(H) mg/dL 09/02/2019 5:18 PM CDT [facility] Comment: ----REFERENCE VALUE---- Normal: <150 Borderline high: 150-199 High: 200-499 Very high: > or =500 Cholesterol, HDL, S 42(L) >=50 mg/dL 09/02/2019 5:18 PM CDT [facility] Calculated LDL 105 mg/dL 09/02/2019 5:18 PM CDT [facility] Comment: ----REFERENCE VALUE---- Desirable: <100 Above Desirable: 100-129 Borderline high: 130-159 High: 160-189 Very high: > or =190 Cholesterol, Non-HDL, Calculated 149 mg/dL 09/02/2019 5:18 PM CDT [facility] Comment: ----REFERENCE VALUE---- Desirable: <130 Above Desirable: 130-159 Borderline high: 160-189 High: 190-219 Very high: > or =220 Blood (Blood, Venous) 09/02/2019 1:32 PM CDT 09/02/2019 3:45 PM CDT Gretchen Andrea M.D. LAB BLOO D ADD-ON Performing Organization Address [facility] Co de Phone Number [facility] [address] [address], [facility] [address] [place] [address] * S-TSH (Thyroid-Stimulating Hormone - Sensitive) (09/02/2019 1:32 PM CDT) TSH, Sensitive 3.2 0.3 - 4.2 mIU/L 09/02/2019 4:42 PM CDT [facility] Comment: Biotin has been identified by the service associate as a potential interfering substance. ??Higher concentrations of biotin may be found in multivitamins, hair/nail supplements, and workout supplements. ??If the result does not match clinical observations, repeat testing after patient refrains from the use of supplements for at least 12 hours. Blood (Blood, Venous) 09/02/2019 1:32 PM CDT 09/02/2019 3:45 PM CDT Gretchen Andrea M.D. LAB BLOO D ADD-ON Performing Organization Address [facility] Co de Phone Number [facility] [address] [address], [facility] [place] [address] [place] [address] * ThinPrep w/HPV Co-Test Diagnostic (02/20/2019 3:54 PM CDT) 02/24/2019 2:05 PM CDT [facility] Report electronically signed by ALONA Oliver(ASCP) I verify that I have examined all relevant slides/materials for the specimen(s) and rendered or confirmed the diagnosis. 02/24/2019 2:05 PM CDT [facility] Gross Description Received specimen in a ThinPrep vial. 02/24/2019 2:05 PM CDT [facility] Pap Test Source Cervical/Endocervi [place]in 02/24/2019 2:05 PM CDT [facility] Clinical History CEC 02/25/20 19 2:05 PM CDT [facility] Menstrual Status(LMP, PM, ) Hysterectomy 02/24/2019 2:05 PM CDT [facility] Hormone Therapy/Contracep tives none 02/24/2019 2:05 PM CDT [facility] Interpretation Cervical/Endocervi [place] ??(ThinPrep): Satisfactory for Evaluation Endocervical/trans formation zone components absent Negative for Intraepithelial Lesion or Malignancy High Risk HPV Testing results are NEGATIVE. HPV by Mental Tester-Medi ated Amplification ??(TMA) for E6/E7 viral messenger RNA (mRNA) is an in-vitro diagnostic test for the detection of 14 high-risk Human Papilloma (HPV) types (16, 18, 31, 33, 35, 39, 45, 51, 52, 56, 58, 59, 66, and 68) in cervical specimens. Additional testing performed at [facility], [address] [place] [id number]. 02/24/2019 2:05 PM CDT [facility] Varies (Cervix/Endocerv ix) 02/20/2019 3:54 PM CDT 02/23/2019 8:46 AM CDT Gretchen Andrea M.D. LAB PAP PATHDX ORDERABLES [facility] [address] [place] [address], [facility] from Last 3 Months or Most Recently Relevant to Health Maintenance Care Teams Canvas Worker Apprentice Relationship Specialty Start Date End Date Elsewhere, Pcp PCP - General Family Medicine 06/06/21
--- OUTSIDE RECORDS SUMMARY | 2024-06-29 11:09 | XMS_ITS ---
Author Organization [facility] Address [address] [place] [address] Care Team Providers Care Family And Divorce Legal Assistant Name Role Phone Unavailable Unavailable Unavailable Surgery Details Not on file Complications Check Surgery Details section. Procedure Estimated Blood Loss Check Surgery Details section. Procedure Findings Check Surgery Details section. Procedure Specimens Taken Check Surgery Details section.
--- OUTSIDE RECORDS SUMMARY | 2024-06-29 11:09 | XMS_ITS | Referral Summary ---
Author Organization [facility] Address [address] [place] [address] Care Team Providers Care Edging Supervisor Name Role Phone Elsewhere, Pcp Primary Care Provider Unavailabl e Source Comments Patient records contain information from all sites at [facility]. For routine questions regarding patient records, call [phone] during business hours, M-F 8:00 AM - 5:00 PM Central Time. Record requests for emergency care only can be directed to [phone] at any time.[facility] Allergies No known active allergies Medications Medication [...] (FLUZ ONE/FLUARIX) (6 months and older)(PF) 08/23/2015 Social History Tobacco Use Types Packs/Day Years [...] 02/20/2019 2:13 PM CDT Plan of Treatment Not on file Procedures Procedure Name Priority Date/Time Associated Diagnosis [...] Slaughter M.D., M.P.H. LAB BLOOD A DD-ON [facility] [address] [place] [address], [facility] NPRG [facility] [address] [place] [address] * (ABNORMAL) Lipid Panel (09/02/2019 1:32 PM CDT) [facility] Cholesterol, Total 191 mg/dL 2018 5:18 PM [...] Calculated 149 mg/dL 09/02/2019 5:18 PM CDT [facility] Comment: ----REFERENCE VALUE---- Desirable: <130 Above Desirable: 130-159 Borderline high: 160-189 High: 190-219 Very high: > or =220 Blood (Blood, Venous) 09/02/2019 1:32 PM CDT 09/02/2019 3:45 PM CDT Gretchen Andrea M.D. LAB BLOO D ADD-ON Performing Organization Address [facility] Co de Phone Number [facility] [address] [place] [address], [facility] OWAT [facility] [place] [address] [place] [address] * S-TSH (Thyroid-Stimulating Hormone - Sensitive) (09/02/2019 1:32 PM CDT) [facility] TSH, Sensitive 3.2 0.3 - 4.2 mIU/L 09/02/2019 4:42 PM CDT [facility] Comment: Biotin has been identified by the content development manager as a potential interfering substance. ??Higher concentrations of biotin may be found in multivitamins, hair/nail supplements, and workout supplements. ??If the result does not match clinical observations, repeat testing after patient refrains from the use of supplements for at least 12 hours. Blood (Blood, Venous) 09/02/2019 1:32 PM CDT 09/02/2019 3:45 PM CDT Gretchen Andrea M.D. LAB BLOO D ADD-ON Performing Organization Address [facility] [address]/[facility] Co de Phone Number [facility] [address] [place] [address], [place] OWAT [facility] [place] [address] [place] [address] * ThinPrep w/HPV Co-Test Diagnostic (02/20/2019 3:54 PM CDT) 02/24/2019 2:05 PM CDT [facility] Report electronically signed by ALONA Oliver(ASCP) I verify that I have examined all relevant slides/materials for the specimen(s) and rendered or confirmed the diagnosis. 02/24/2019 2:05 PM CDT [facility] Gross Description Received specimen in a ThinPrep vial. 02/24/2019 2:05 PM CDT [facility] Pap Test Source Cervical/Endocervi austin 02/24/2019 2:05 PM CDT [facility] Clinical History CEC 02/25/20 19 2:05 PM CDT [facility] Menstrual Status(LMP, PM, ) Hysterectomy 02/24/2019 2:05 PM CDT [facility] Hormone Therapy/Contracep tives none 02/24/2019 2:05 PM CDT [facility] Interpretation Cervical/Endocervi [place] ??(ThinPrep): Satisfactory for Evaluation Endocervical/trans formation zone components absent Negative for Intraepithelial Lesion or Malignancy High Risk HPV Testing results are NEGATIVE. HPV by Detective And Intelligence Analyst-Medi ated Amplification ??(TMA) for E6/E7 viral messenger RNA (mRNA) is an in-vitro diagnostic test for the detection of 14 high-risk Human Papilloma (HPV) types (16, 18, 31, 33, 35, 39, 45, 51, 52, 56, 58, 59, 66, and 68) in cervical specimens. Additional testing performed at [facility] ([facility], [address] [place] [address]. 02/24/2019 2:05 PM CDT [facility] Varies (Cervix/Endocerv ix) 02/20/2019 3:54 PM CDT 02/23/2019 8:46 AM CDT Gretchen Andrea M.D. LAB PAP PATHDX ORDERABLES [facility] [address] [place] [address], [facility] from Last 3 Months or Most Recently Relevant to Health Maintenance Care Teams Edging Supervisor Relationship Specialty Start Date End Date Elsewhere, Pcp PCP - General Family Medicine 06/06/21
--- OUTSIDE RECORDS SUMMARY | 2024-06-29 11:09 | XMS_ITS | Clinical Summary ---
Author Organization [facility] Address [place], [place] [address] Care Team Providers Care Printed Circuit Board Drafter Name Role Phone Adi Brown MD Primary Care Provider [phone] Allergies No known active allergies Medications Medication Sig Dispensed Refills Start Date End Date Status rOPINIRole (REQUIP) 0.5 mg tablet Take 0.5 mg by mouth at bedtime. Active amLODIPine (NORVASC) 5 mg tablet Take 5 mg by mouth once daily. Active calcium carbonate (CALCIUM 500) 500 mg calcium (1,250 mg) tablet Take 1,250 mg by mouth once daily with a meal. Active LORazepam (ATIVAN) 1 mg tablet Take 1 mg by mouth 2 times daily if needed for Anxiety. Active cyanocobalamin (VITAMIN B12) 1,000 mcg/mL injection INJECT 1ML INTRAMUSCULARLY EVERY 30 DAYS 08/19/2019 Active FLOVENT HFA 110 mcg/actuation inhaler Inhale 2 Puffs by mouth 2 times daily. 11/03/2020 Active potassium chloride (KLOR-CON M20) 20 mEq Extended-Release tablet Take 20 mEq by mouth 2 times daily with meals. Active atorvastatin (LIPITOR) 20 mg tablet Take 20 mg by mouth at bedtime. 01/12/2021 Active hydroCHLOROthiazid e (HCTZ) 25 mg tablet Take 25 mg by mouth once daily. 02/22/2021 Active Vios DIRECTED 11/15/2020 Active phentermine (IONAMIN) 15 mg capsule Take 15 mg by mouth. 02/21/2021 Acti ve albuterol HFA (PRO-AIR; VENTOLIN; PROVENTIL) 90 mcg/actuation inhalerIndications :Cough Inhale 1-2 Puffs by mouth every 4 hours if needed for Shortness of Breath 1st choice. 1 Each 10/17/2021 Active cetirizine (ZYRTEC) 10 mg tablet Take 10 mg by mouth once daily. 11/08/2022 Active levothyroxine (SYNTHROID) 150 mcg tablet Take 150 mcg by mouth once daily. 10/11/2022 Active lisinopriL (PRINIVIL; ZESTRIL) 20 mg tablet Take 20 mg by mouth two times daily. 11/13/2022 Active Active Problems Problem Noted Date Diagnosed Date Acute respiratory failure with hypoxia Pneumonia due to COVID-19 virus 11/11/2020 Mixed hyperlipidemia 11/11/2020 Benign essential HTN 11/11/2020 Primary hypothyroidism 11/11/2020 Restless leg syndrome 11/11/2020 Moderate asthma without complication 11/11/2020 Xanthelasma of left upper eyelid 03/15/2019 Restless leg syndrome 02/20/2019 Hypercholesterolemia 06/30/2018 Knee pain 06/30/2018 Morbid obesity 06/30/2018 Obstructive sleep apnea syndrome 06/30/2018 Overview: 6 cm H2o End stage osteoarthritis of both knees 6 ACP (advance care planning) 03/09/2013 Overview: Patient has identified Health Care Agent(s): No,declined HCD. Derik [phone] would be decision maker Add Health Care Agents: No Patient has Advance Care Plan Documents (Health Care Directive, POLST): No, declined HCD.. Patient has identified Specific Treatment Preferences: No Specific limits to treatment preferences NOT identified: ASSUME FULL TREATMENT. Fibroid, uterine 03/08/2013 Hypoxia 03/08/2013 Overview: With CT pulmonary angiogram with no visible emboli, but study was limited by body habitus Unspecified hypothyroidism 03/08/2013 Unspecified essential hypertension Immunizations Name Administration Dates Next Due Influenza Virus, Unspecified 08/26/2018 Influenza, IIV3 (Age 6-35 mos) 10/24/2010 Influenza, IIV4 08/26/2018,08/23/2015 Tdap 01/12/2022,07/15/2009 Social History Tobacco Use Types Packs/Day Years Used Date Smoking Tobacco: Former Smokeless Tobacco: Never Tobacco Cessation:Counseling Given: Yes Alcohol Use Standard Drinks/Week Comments Yes 0 (1 standard drink = 0.6 oz pur e alcohol) rare Sex and Gender Information Value Date Recorded Sex Assigned at Not on file Gender Identity Not on file Sexual Orientation Not on file Obstetrics History Last Filed Vital Signs Vital Sign Reading Time Taken Comments Blood Pressure 187/87 01/05/2023 12:18 PM FARM SERVICE CONSULTANT Takes medication for Hypertension, took meds Pulse 82 01/05/2023 12:18 PM FARM SERVICE CONSULTANT Temperature 36.5 ??C (97.7 ??F) 01/05/2023 1 2:18 PM FARM SERVICE CONSULTANT Respiratory Rate 23 01/05/2023 12:1 8 PM FARM SERVICE CONSULTANT Oxygen Saturation 94% 01/05/2023 12: 18 PM FARM SERVICE CONSULTANT Has asthma Inhaled Oxygen Concentration - - Weight 175.5 kg (387 lb) 01/05/2023 12: 18 PM FARM SERVICE CONSULTANT Height 165.1 cm (5' 5) 03/13/2021 3:52 AM CDT Body Mass Index 64.4 03/13/2021 3:52 AM CDT Plan of Treatment Health Maintenance Due Date Last Done Comments Depression screening for age 12+ 1980 HIV for age 15-65 1983 Hepatitis C screening for ag e 18-79 1986 Pap test for age 21-65 1989 Colonoscopy through age 75 2013 Lipids for age 45-75 2013 Mammogram for age 45-75 2013 BMI (ht and wt on same day) for age 18+ 08/24/2017 08/24/2016 Zoster (shingles) series for age 50+ (1 of 2) 2018 COVID-19 vaccine series ( season) 2023 03/26/2021, 03/05/2021 Influenza for age 50-64 07/12/2024 08/26/20 18, 08/26/2018, 08/23/2015 Tetanus booster 01/13/2032 01/12/2022, 07/15/2009 Tdap Completed 01/12/2022, 07/15/2009 Pneumococcal series for age 6-64 Aged Out No longer eligible b ased on patient's age to complete this topic Advance Directives * Full Code (Latest Code Status on File) Date Activated Date Inactivated Comments 11/14/2020 12:02 PM 11/15/2020 1:39 PM Question Answer Comments Code Status Discussion: Discussed * Full Code Date Activated Date Inactivated Comments 11/11/2020 12:21 PM 11/12/2020 2:39 PM Question Answer Comments Code Status Discussion: Not Discussed * Full Code Date Activated Date Inactivated Comments 03/08/2013 6:21 PM 03/10/2013 6:09 PM Care Teams Printed Circuit Board Drafter Relationship Specialty Start Date End Date Adi Brown MD PCP - General Family Practice 01/05/23
== END 2024-06-29 11:04 | disposition home or self-care (01) ==
PROVIDERS: PCP Family Medicine; Visit Provider Family Medicine
DX: E03.9 Hypothyroidism, unspecified (principal); E78.2 Mixed hyperlipidemia; I10 Essential (primary) hypertension
CPT/HCPCS: 80053; 80061; 84439; 84443

== ENCOUNTER 2024-12-19 13:29 | Emergency (ER) | payer BC, SELFPAY ==
--- NOTE | 2024-12-19 | CRLHL7_ITS ---
For Patients: As a result of the Century Cures Act, medical imaging exams and procedure reports are released immediately into your electronic medical record. You may view this report before your referring provider. If you have questions, please contact your health care provider. INDICATION: Pain COMPARISON: None TECHNIQUE: CT of the thoracic spine without contrast FINDINGS: No acute fracture or malalignment. Normal thoracic kyphosis is maintained. Slight dextroscoliotic curvature. No listhesis. Vertebral body heights are maintained minimal multilevel intervertebral disc height loss with minimal multilevel degenerative endplate changes anteriorly. No spinal canal or neuroforaminal stenosis. No suspicious osseous lesions. Please see same-day CT chest for description of intrathoracic and intra-abdominal findings. IMPRESSION: No acute fracture or trauma-related malalignment. Please note that all CT scans at this facility use dose modulation, iterative reconstruction, and/or weight-based dosing when appropriate to reduce radiation dose to as low as reasonably achievable. Dictated by Steve Ramirez MD @ 12/19/2024 4:48:21 PM (Electronically Signed)
--- OUTSIDE RECORDS SUMMARY | 2024-12-19 13:32 | XMS_ITS | Encounter Summary ---
Author Organization [facility] Address [address] [place] [address] Care Team Providers Care Range Technician Name Role Phone Elsewhere, Pcp Primary Care Provider Unavailabl e Reason for Referral * Outpatient (Routine) - Closed Specialty Diagnoses / Procedures Referred By Talita t Referred To Contact Diagnoses Cough Unspecified Type Procedures DX Chest AP or PA and Lateral 2 Views Mikey Engel P.A.-C., P.A. [address] [place] [address] Phone: tel: fax: [facility] Region Referral ID Status Reason Start Date Expiration Date Visits Re quested Visits Authorized [id number] Closed 11/29/2024 11/29/2025 1 1 CAL RECORDS MANAGER Reason for Visit * Reason Comments Cough Congestion Encounter Details Date Type Department Care Team ([facility] Contact Info) Description 11/29/2024 3:00 PM MEDICAL RECORDS MANAGER Office Visit Urgent Care in [place], [place] [address] [place] [id number] David Shepherd D.O. [address] [place] [address] Cough Unspecified Type (Primary Dx); Apnea Sleep Obstructive; Asthma Moderate Persistent With Acute Exacerbation (HCC) Social History Tobacco Use Types Packs/Day Years Used Date Smoking Tobacco: Never Smokeless Tobacco: Never PHQ-2 Answer Date Recorded PHQ-2 Score 0 04/22/2019 Nutrition Answer Date Recorded Nutrition: EVOO Fat Source 13 07/26 Nutrition: Servings of Fruits/Vegetables per Day Not on file 07/26/2020 Dental Answer Date Recorded Dental: Regular Dentist Unknown 01/12/20 21 Comments No Sex and Gender Information Value Date Recorded Sex Assigned at Not on file Legal Sex Female 9:23 AM MEDICAL RECORDS MANAGER Gender Identity Female 06/30/2018 8:07 AM CDT Sexual Orientation Not on file documented as of this encounter Last Filed Vital Signs Vital Sign Reading Time Taken Comments Blood Pressure 100/60 11/29/2024 3:06 PM MEDICAL RECORDS MANAGER Pulse 90 11/29/2024 3:06 PM MEDICAL RECORDS MANAGER Temperature 36.7 C (98.1 F) 11/29/2024 3:06 PM MEDICAL RECORDS MANAGER Respiratory Rate - - Oxygen Saturation 95% 11/29/2024 3:06 PM MEDICAL RECORDS MANAGER Inhaled Oxygen Concentration - - Weight 168 kg (370 lb 2.4 oz) 11/29/2024 3:06 PM MEDICAL RECORDS MANAGER Height - - Body Mass Index 63.43 02/20/2019 2:13 PM CDT documented in this encounter Patient Instructions * Patient Instructions* David Shepherd D.O. - 11/29/2024 3:00 PM MEDICAL RECORDS MANAGER [place] spray 3-4 times a day. Flonase/fluticasone or Nasacort 1 hour before or after nasal saline 2 times a day. Ramona 1-2 times a day to help with postnasal drip. Ibuprofen: 2-4 times a day. CAL RECORDS MANAGER CAL RECORDS MANAGER documented in this encounter Progress Notes * David Shepherd D.O. - 11/29/2024 3:00 PM CST SUBJECTIVE CHIEF COMPLAINT/REASON FOR VISIT Cough and Congestion HISTORY OF PRESENT ILLNESS Patient presents today with 5 days of cough. She also has a history of asthma and is having some wheezing. She notes that the cough is keeping her up at night. Seems to be okay during the day. Has noted some wheezing and sinus congestion. She notes significant postnasal drip. She states she has hadchills and has felt hot, but has not actually measured a fever. No loose stools. Currently on Flovent and is taking this regularly for her asthma. Is on albuterol but states it she tried it a few times and it was not helpful for her cough. She has been taking cough medicine and ibuprofen and Tylenol. She is unable to wear her CPAP mask due to sinus congestion. She was diagnosed with COVID 2 weeksago as well she states her symptoms improve before getting her cough symptoms again. The following portions of the patient's history were reviewed and updated as appropriate: allergies, current medications, medical history, social history, and problem list. OBJECTIVE Vitals: 11/29/24 1506 BP: 100/60 Pulse: 90 Temp: 36.7 ??C SpO2: 95% Weight: (!) 168 kg Body mass index is 63.43 kg/m??. PHYSICAL EXAMINATION Constitutional: Vitals reviewed. HENT: Right Ear: Tympanic membrane normal. Left Ear: Tympanic membrane normal. Cardiovascular: Normal rate, regular rhythm and normal heart sounds. Pulmonary/Chest: Effort normal. She has wheezes (Occasional wheeze noted.). ASSESSMENT/PLAN #1 Cough Unspecified Type - DX Chest AP or PA and Lateral 2 Views; Future; Expected date: 11/29/2024 #2 Apnea Sleep Obstructive Overview: 6 cm H2o #3 Asthma Moderate Persistent With Acute Exacerbation (HCC) Other orders - predniSONE (Deltasone) 20 mg tablet; Take 2 tablets (40 mg total) by mouth daily for 5 days., Starting 11/29/2024, Until Sat12/04/2024, Normal - benzonatate (Tessalon Perles) 100 mg capsule; Take 1 capsule (100 mg total) by mouth 3 (three) times a day as needed for cough., Starting 11/29/2024, Normal Most likely is an upper respiratory infection exacerbating asthma. Will start prednisone. Reviewed to take her Ramona twice daily to help with postnasal drip. We will get her some Tessalon Perles tohelp with cough. Advised to do some Flonase and ocean spray to help clear up the sinuses to see if she can get her CPAP for her sleep apnea on again and working. She can sit in a recliner if unable to wear her CPAP device. Follow up if she is having worsening symptoms particularly fever or worsening breathing symptoms. Could consider antibiotic coverage at that point for exacerbation. Will start with the prednisone to see if it clears. Patient made aware of emergent signs and symptoms and when to seek additional care. Patient encouraged to return to urgent care or their primary care provider if any health questions or concerns persist, worsen, or develop. CAL RECORDS MANAGER documented in this encounter Plan of Treatment Not on file documented as of this encounter Results * DX Chest AP or PA and Lateral 2 Views (11/29/2024 3:21 PM MEDICAL RECORDS MANAGER) Anatomical Region Laterality Modality Chest, Thoracic RST LOS, Tho racic ARZ LOS, Thoracic FLA LOS N/A Digital Radiography Impressions 11/29/2024 3:23 PM MEDICAL RECORDS MANAGER No acute cardiopulmonary disease. Narrative 11/29/2024 3:23 PM MEDICAL RECORDS MANAGER EXAM: DX CHEST AP OR PA AND LATERAL 2 VIEWS COMPARISON: 04/03/2023. FINDINGS: Heart size, cardiomediastinal, hilar contours are within normal limits. No focal consolidation, pleural effusion, pulmonary vascular congestion. No pneumothorax. Procedure Note Mono Mitchell M.D. - 11/29/2024 EXAM: DX CHEST AP OR PA AND LATERAL 2 VIEWS COMPARISON: 04/03/2023. FINDINGS: Heart size, cardiomediastinal, hilar contours are within normallimits. No focal consolidation, pleural effusion, pulmonary vascularcongestion. No pneumothorax. IMPRESSION: No acute cardiopulmonary disease. Mikey Engel P.A.-C., P.A. IMG DIAGNOSTIC IMAGING PROCEDURES Final Result documented in this encounter Visit Diagnoses Diagnosis Cough Unspecified Type- Primary Apnea Sleep Obstructive Asthma Moderate Persistent With Acute Exacerbation (HCC) Cough Unspecified Type documented in this encounter Additional Health Concerns Assessment Noted Time PHQ-9 Depression Total Score: 4 06/30/20 18 10:14 AM CDT documented as of this encounter Care Teams Range Technician Relationship Specialty Start Date End Date Elsewhere, Pcp PCP - General Family Medicine 06/06/21 documented as of this encounter
--- OUTSIDE RECORDS SUMMARY | 2024-12-19 13:32 | XMS_ITS | Encounter Summary ---
Author Organization [facility] Address [address] [place] [address] Care Team Providers Care Fretted Instrument Repairer Name Role Phone Elsewhere, Pcp Primary Care Provider Unavailabl e Reason for Referral * Outpatient (Routine) - Closed Specialty Diagnoses / Procedures Referred By Contac t Referred To Contact Diagnoses Cough Unspecified Type Procedures DX Chest AP or PA and Lateral 2 Views Mikey Engel P.A.-C., P.A. [address] [place] [address] Phone: tel: fax: [facility] Referral ID Status Reason Start Date Expiration Date Visits Re quested Visits Authorized [id number] Closed 11/29/2024 11/29/2025 1 1 GING PARTNER Reason for Visit * Outpatient (Routine) - Closed Specialty Diagnoses / Procedures Referred By Contac t Referred To Contact Diagnoses Cough Unspecified Type Procedures DX Chest AP or PA and Lateral 2 Views Mikey Engel P.A.-C., P.A. [address] [place] [address] Phone: tel: fax: [facility] Referral ID Status Reason Start Date Expiration Date Visits Re quested Visits Authorized [id number] Closed 11/29/2024 11/29/2025 1 1 Encounter Details Date Type Department Care Team (Late st Contact Info) Description 11/29/2024 3:14 PM MANAGING PARTNER - 11/29/2024 11:59 PM MANAGING PARTNER Hospital Encounter Department of Radiology, [facility], in [place], [place] [address] [place] [id number] Mikey Engel P.A.-C., P.A. [address] [place] [address] Cough Unspecified Type Discharge Disposition: Home or Self Care Social History Tobacco Use Types Packs/Day Years [...] on file Legal Sex Female 9:23 AM MANAGING PARTNER Gender Identity Female 06/30/2018 8:07 AM CDT Sexual Orientation Not on file documented as of this encounter Medications at Time of Discharge albuterol 90 mcg/actuation inhaler Inhale 1-2 puffs every 4 (four) hours as needed. 10/17/2021 amLODIPine (Norvasc) 5 mg tablet Take 1 tablet (5 mg total) by mouth daily. 90 tablet 3 09/23/2020 aspirin 81 mg chewable tablet Chew 81 mg daily. 05/25/2022 atorvastatin (LIPITOR) 20 mg tablet TAKE ONE TABLET BY MOUTH AT BEDTIME 90 tablet 3 01/12/2021 benzonatate (Tessalon Perles) 100 mg capsule Take 1 capsule (100 mg total) by mouth 3 (three) times a day as needed for cough. 20 capsule 11/29/2024 calcium carbonate (OS-HORTENSIA) 1,250 mg (500 mg calcium) tablet Take 1,250 mg by mouth. cetirizine (ZyrTEC) 10 mg tablet Take 10 mg by mouth daily. cyanocobalamin (VITAMIN B12) 1,000 mcg/mL injection Inject 1 mL (1,000 mcg total) intramuscularly every 30 (thirty) days. 3 mL 3 12/09/2020 Flovent HFA 110 mcg/actuation inhaler TAKE 2 PUFFS TWO TIMES A DAY - RINSE MOUTH AFTER EACH USE AND SPIT OUT 36 g 3 05/26/2021 hydroCHLOROthia zide (HYDRODIURIL) 25 mg tablet TAKE ONE TABLET BY MOUTH ONCE DAILY 90 tablet 02/23/2021 levothyroxine (SYNTHROID, LEVOTHROID) 150 mcg tablet Take 150 mcg by mouth daily. 10/11/2022 lisinopriL (PRINIVIL,ZESTR IL) 20 mg tablet TAKE ONE TABLET BY MOUTH TWICE A DAY 180 tablet 3 12/28/2019 LORazepam (Ativan) 1 mg tablet Take 1-2 tablets (1-2 mg total) by mouth 2 (two) times a day as needed for anxiety (as needed). Anxiety. 30 tablet 1 04/24/2020 phentermine 15 mg capsule Take 15 mg by mouth daily. 02/21/2021 phentermine-top iramate (Qsymia) 7.5-46 mg capsule, ER multiphase 24 hr ext release capsule Take 1 capsule by mouth every morning before breakfast. 30 capsule 5 12/21/2020 potassium chloride (KLOR-CON SPRINKLE) 10 mEq ER sprinkle capsule Take 1 capsule by mouth 2 (two) times a day. 04/05/2015 rOPINIRole (REQUIP) 0.5 mg tablet Take 1 tablet by mouth at bedtime. 04/05/2015 predniSONE (Deltasone) 20 mg tablet Take 2 tablets (40 mg total) by mouth daily for 5 days. 10 tablet 11/29/2024 12/04/19 25 documented as of this encounter Plan of Treatment Not on file documented as of this encounter Procedures Procedure Name Priority Date/Time Associated Diagnosis Comments DX CHEST AP OR PA AND LATERAL 2 VIEWS RAD - Routine (most inpatients and all outpatients) 11/29/2024 3:21 PM MANAGING PARTNER Cough Unspecified Type documented in this encounter Results * DX Chest AP or PA and Lateral 2 Views (11/29/2024 3:21 PM MANAGING PARTNER) Anatomical Region Laterality Modality Chest, Thoracic RST LOS, Tho racic ARZ LOS, Thoracic FLA LOS N/A Digital Radiography Impressions 11/29/2024 3:23 PM MANAGING PARTNER No acute cardiopulmonary disease. Narrative 11/29/2024 3:23 PM MANAGING PARTNER EXAM: DX CHEST AP OR PA AND [...] IMPRESSION: No acute cardiopulmonary disease. Mikey Engel P.A.-C. P.A. IMG DIAGNOSTIC IMAGING PROCEDURES Final Result documented in this encounter Visit Diagnoses Diagnosis Cough Unspecified Type documented in this encounter Additional Health Concerns Assessment Noted Time PHQ-9 Depression Total Score: 4 06/30/20 18 10:14 AM CDT documented as of this encounter Care Teams Fretted Instrument Repairer Relationship Specialty Start Date End Date Elsewhere, Pcp PCP - General Family Medicine 06/06/21 documented as of this encounter
--- OUTSIDE RECORDS SUMMARY | 2024-12-19 13:32 | XMS_ITS | Clinical Summary ---
Author Organization [facility] Address [address] [place] [address] Care Team Providers Care Manager Activities Name Role Phone Elsewhere, Pcp Primary Care Provider Unavailabl e Source Comments Patient records contain information from all sites at [facility]. For routine questions regarding patient records, call [phone] during business hours, M-F 8:00 AM - 5:00 PM Central Time. Record requests for emergency care only can be directed to [phone] at any time.[facility] Allergies No known active allergies Medications * This document contains information received from the source organization and may not represent a complete record from that organization. potassium chloride (KLOR-CON SPRINKLE) 10 mEq ER sprinkle capsule Take 1 capsule by mouth 2 (two) times a day. 04/05/20 15 Active rOPINIRole (REQUIP) 0.5 mg tablet Take 1 tablet by mouth at bedtime. 04/05/20 15 Active lisinopriL (PRINIVIL,ZEST RIL) 20 mg tablet TAKE ONE TABLET BY MOUTH TWICE A DAY 180 tablet 3 12/28/19 20 Active calcium carbonate (OS-AUSTIN) 1,250 mg (500 mg calcium) tablet Take 1,250 mg by mouth. Active LORazepam (Ativan) 1 mg tablet Take 1-2 tablets (1-2 mg total) by mouth 2 (two) times a day as needed for anxiety (as needed). Anxiety. 30 tablet 1 04/24/20 20 Active cetirizine (ZyrTEC) 10 mg tablet Take 10 mg by mouth daily. Active amLODIPine (Norvasc) 5 mg tablet Take 1 tablet (5 mg total) by mouth daily. 90 tablet 3 09/23/20 20 Active cyanocobalamin (VITAMIN B12) 1,000 mcg/mL injection Inject 1 mL (1,000 mcg total) intramuscularly every 30 (thirty) days. 3 mL 3 12/09/19 21 Active phentermine-to piramate (Qsymia) 7.5-46 mg capsule, ER multiphase 24 hr ext release capsule Take 1 capsule by mouth every morning before breakfast. 30 capsule 5 12/21/19 21 Active atorvastatin (LIPITOR) 20 mg tablet TAKE ONE TABLET BY MOUTH AT BEDTIME 90 tablet 3 01/13/20 21 Active hydroCHLOROthi azide (HYDRODIURIL) 25 mg tablet TAKE ONE TABLET BY MOUTH ONCE DAILY 90 tablet 02/24/20 21 Active Flovent HFA 110 mcg/actuation inhaler TAKE 2 PUFFS TWO TIMES A DAY - RINSE MOUTH AFTER EACH USE AND SPIT OUT 36 g 3 05/26/20 21 Active aspirin 81 mg chewable tablet Chew 81 mg daily. 05/25/20 22 Active levothyroxine (SYNTHROID, LEVOTHROID) 150 mcg tablet Take 150 mcg by mouth daily. 10/11/20 22 Active phentermine 15 mg capsule Take 15 mg by mouth daily. 02/22/20 21 Active albuterol 90 mcg/actuation inhaler Inhale 1-2 puffs every 4 (four) hours as needed. 10/17/20 21 Active benzonatate (Tessalon Perles) 100 mg capsule Take 1 capsule (100 mg total) by mouth 3 (three) times a day as needed for cough. 20 capsule 11/29/19 25 Active predniSONE (Deltasone) 20 mg tablet Take 2 tablets (40 mg total) by mouth daily for 5 days. 10 tablet 11/29/19 25 025 Active Problems Problem Noted Date Diagnosed Date Xanthelasma Left Upper Eyelid 03/15/2019 Restless Leg Syndrome 02/20/2019 Hypothyroidism Acquired 02/20/2019 Hypercholesterolemia 06/30/2018 Apnea Sleep Obstructive 06/30/2018 Overview (02/20/2019): 6 cm H2o Morbid Severe Obesity Due To Excess Calories Hypertension Essential Primary 06/30/2018 Pain Knee Bilateral 06/30/2018 Encounters Date Type Department Care Team Description 11/29/2024 3:14 PM BRANCH MANAGER TRAINEE - 11/29/2024 11:59 PM BRANCH MANAGER TRAINEE Hospital Encounter Department of Radiology, [facility], in [place], [place] [address] [address] Mikey Engel P.A.-C., P.A. Cough Unspecified Type Discharge Disposition: Home or Self Care 11/29/2024 3:00 PM BRANCH MANAGER TRAINEE Office Visit Urgent Care in [place], [place] [address] [place] [address] David Shepherd D.O. Cough Unspecified Type (Primary Dx); Apnea Sleep Obstructive; Asthma Moderate Persistent With Acute Exacerbation (HCC) from Last 3 Months Immunizations Immunization Administration Dates Next Due Influenza, Unspecified 08/26/2018 Tdap 07/15/2009 influenza trivalent vaccine (6 months and older) (PF) 10/24/2010 influenza vaccine quad (FLUZ ONE/FLUARIX) (6 months [...] on file Legal Sex Female 9:23 AM BRANCH MANAGER TRAINEE Gender Identity Female 06/30/2018 8:07 AM CDT Sexual Orientation Not on file Last Filed Vital Signs Vital Sign Reading Time Taken Comments Blood Pressure 100/60 11/29/2024 3:06 PM BRANCH MANAGER TRAINEE Pulse 90 11/29/2024 3:06 PM BRANCH MANAGER TRAINEE Temperature 36.7 C (98.1 F) 11/29/2024 3:06 PM BRANCH MANAGER TRAINEE Respiratory Rate 21 04/03/2023 8:15 AM CDT Oxygen Saturation 95% 11/29/2024 3:06 PM BRANCH MANAGER TRAINEE Inhaled Oxygen Concentration - - Weight 168 kg (370 lb 2.4 oz) 11/29/2024 3:06 PM BRANCH MANAGER TRAINEE Height 162.7 cm (5' 4.06) 02/20/2019 2:13 PM CD T Body Mass Index 63.43 02/20/2019 2:13 PM CDT Plan of Treatment Health Maintenance Due Date Last Done Comments CT Colonography 1968 Cologuard 1968 Colonoscopy 1968 Colorectal Cancer Screening 1968 FIT 1968 HIV Screening 1968 Hepatitis C Screening 1968 Mammogram 1968 Hepatitis B Vaccines (1 of 3 - 19+ 3-dose series) 1987 Pneumococcal vaccine (50+ years) (1 of 1 - PCV) 2018 Thyroid Stimulating Hormone (TSH) test for thyroid function 11/05/2021 11/05/2020, 09/02/2019, 08/26/2018, Additional history exists Cervical/Vaginal Cancer Screening 02/21/2024 02/20/2019, 02/20/2019 Creatinine Level (Kidney Function Test) 04/03/2024 04/03/2023, 01/05/2023, 11/14/2020, Additional history exists Potassium Level 04/03/2024 04/03/2023, 0 02/2021, 11/14/2020, Additional history exists Sodium Level 04/03/2024 04/03/2023, 010 02/2021, 11/14/2020, Additional history exists COVID-19 Vaccine ( season) 2024 03/26/2021, 03/05/2021 Influenza Vaccine (#1) 2024 , 08/26/2018, 08/23/2015, Additional history exists Lipid (Cholesterol) Screening 09/02/2024 09/02/2019, 08/26/2018, 06/30/2018, Additional history exists Zoster Vaccines (2 of 2) 10/29/2024 09/03/2024 Depression Screening (Annual PHQ-2) 11/11/2024 Office Visit for Blood Pressure Check / Re-check 11/29/2025 11/29/2024 Fasting Glucose for Diabetes Screening 04/03/2026 04/03/2023, 11/14/2020, 11/12/2020, Additional history exists DTaP,Tdap,and Td Vaccines (3 - Td or Tdap) 01/13/2032 01/12/2022, 07/15/2009 IPV Vaccines Aged Out No longer eligi ble based on patient's age to complete this topic Procedures Procedure Name Priority Date/Time Associated Diagnosis Comments DX CHEST AP OR PA AND LATERAL 2 VIEWS RAD - Routine (most inpatients and all outpatients) 11/29/2024 3:21 PM BRANCH MANAGER TRAINEE Cough Unspecified Type BASIC METABOLIC PANEL, S/P STAT 04/03/2023 1:37 AM CDT LIPID PANEL, S Routine 09/02/2019 1:32 PM CDT Hypercholesterolem ia THYROID-STIMULATI NG HORMONE-SENSITIVE (S-TSH) Routine 09/02/2019 1:32 PM CDT Hypothyroidism THINPREP W/HPV CO-TEST DIAGNOSTIC Routine 02/20/2019 3:54 PM CDT Pap Smear Examination from Last 3 Months or Most Recently Relevant to Health Maintenance Results * DX Chest AP or PA and Lateral 2 Views (11/29/2024 3:21 PM BRANCH MANAGER TRAINEE) Anatomical Region Laterality Modality Chest, Thoracic RST LOS, Tho racic ARZ LOS, Thoracic FLA LOS N/A Digital Radiography Impressions 11/29/2024 3:23 PM BRANCH MANAGER TRAINEE No acute cardiopulmonary disease. Narrative 11/29/2024 3:23 PM BRANCH MANAGER TRAINEE EXAM: DX CHEST AP OR PA AND [...] No pneumothorax. IMPRESSION: No acute cardiopulmonary disease. Gurvinder Jarvis P.A.-C. IMG DIAGNOSTIC IMAGING PROCEDURES Final Result * (ABNORMAL) Basic Metabolic Panel (04/03/2023 1:37 [...] 1:37 AM CDT 04/03/2023 1:41 AM CDT us Valerie Slaughter M.D., M.P.H. LAB BLOOD ADD-ON Fi nal Result [facility] [address] [place] [address], [facility] NPRG [facility] [address] [place] [address] * (ABNORMAL) Lipid Panel (09/02/2019 1:32 PM CDT) Cholesterol, Total 191 mg/dL 2018 5:18 PM [...] 3:45 PM CDT Gretchen Andrea M.D. LAB BLOOD ADD-ON Final Result [facility] [address] [place] [address], [place] OW[place] [facility] in [place] [address] [place] [address] * S-TSH (Thyroid-Stimulating Hormone - Sensitive) (09/02/2019 1:32 PM CDT) TSH, Sensitive 3.2 0.3 - 4.2 mIU/L 09/02/2019 4:42 PM CDT [facility] Comment: Biotin has been identified by the fuel technician as a potential interfering substance. Higher concentrations of biotin may be found in multivitamins, hair/nail supplements, and workout supplements. If the result does not match clinical observations, repeat testing after patient refrains from the use of supplements for at least 12 hours. Blood (Blood, Venous) 09/02/2019 1:32 PM CDT 09/02/2019 3:45 PM CDT Gretchen Andrea M.D. LAB BLOOD ADD-ON Final Result [facility] [address] [place] [address], [facility] OWAT [facility] in [place] [address] [place] [address] * ThinPrep w/HPV Co-Test Diagnostic (02/20/2019 3:54 PM CDT) 02/24/2019 2:05 PM CDT [facility] Report electronically signed by ALONA Oliver(ASCP) I verify that I have examined all relevant slides/materials for the specimen(s) and rendered or confirmed the diagnosis. 02/24/2019 2:05 PM CDT [facility] Gross Description Received specimen in a ThinPrep vial. 02/24/2019 2:05 PM CDT [facility] Pap Test Source Cervical/Endocervi austin 02/24/2019 2:05 PM CDT [facility] Clinical History CEC 02/25/20 19 2:05 PM CDT [facility] Menstrual Status(LMP, PM, ) Hysterectomy 02/24/2019 2:05 PM CDT [facility] Hormone Therapy/Contracep tives none 02/24/2019 2:05 PM CDT [facility] Interpretation Cervical/Endocervi austin (ThinPrep): Satisfactory for Evaluation Endocervical/trans formation zone components absent Negative for Intraepithelial Lesion or Malignancy High Risk HPV Testing results are NEGATIVE. HPV by Drilling Field Specialist-Medi ated Amplification (TMA) for E6/E7 viral messenger RNA (mRNA) is an in-vitro diagnostic test for the detection of 14 high-risk Human Papilloma (HPV) types (16, 18, 31, 33, 35, 39, 45, 51, 52, 56, 58, 59, 66, and 68) in cervical specimens. Additional testing performed at [facility], [address] [place] [address]. 02/24/2019 2:05 PM CDT [facility] Varies (Cervix/Endocerv ix) 02/20/2019 3:54 PM CDT 02/23/2019 8:46 AM CDT Gretchen Andrea M.D. LAB PAP PATHDX O RDERABLES Final Result Performing Organization Address City/State/[facility] Co de Phone Number [facility] [address] [place] [address], [facility] from Last 3 Months or Most Recently Relevant to Health Maintenance Insurance [facility] [place] [id number] Care Teams Manager Activities Relationship Specialty Start Date End Date Elsewhere, Pcp PCP - General Family Medicine 06/06/21
--- OUTSIDE RECORDS SUMMARY | 2024-12-19 13:32 | XMS_ITS | Clinical Summary ---
Author Organization [facility] Address [place], [place] [address] Care Team Providers Care Extruder Name Role Phone Adi Brown MD Primary Care Provider [phone] Allergies No known active allergies Medications rOPINIRole (REQUIP) 0.5 mg tablet Take 0.5 [...] 2 times daily if needed for Anxiety. Activ e cyanocobalamin (VITAMIN B12) 1,000 mcg/mL injection INJECT 1ML INTRAMUSCULARLY EVERY 30 DAYS 08/19/20 19 Active FLOVENT HFA 110 mcg/actuation inhaler Inhale 2 Puffs by mouth 2 times daily. 11/03/20 20 Active potassium chloride (KLOR-CON M20) 20 mEq Extended-Relea se tablet Take 20 mEq by mouth 2 times daily with meals. Active atorvastatin (LIPITOR) 20 mg tablet Take 20 mg by mouth at bedtime. 01/13/20 21 Active hydroCHLOROthi azide (HCTZ) 25 mg tablet Take 25 mg by mouth once daily. 02/23/20 21 Active Vios DIRECTED 11/15/19 21 Active phentermine (IONAMIN) 15 mg capsule Take 15 mg by mouth. 02/22/20 21 Active albuterol HFA (PRO-AIR; VENTOLIN; PROVENTIL) 90 mcg/actuation inhalerIndicat ions:Cough Inhale 1-2 Puffs by mouth every 4 hours if needed for Shortness of Breath 1st choice. 1 Each 10/17/20 Active cetirizine (ZYRTEC) 10 mg tablet Take 10 mg by mouth once daily. 11/08/20 Active levothyroxine (SYNTHROID) 150 mcg tablet Take 150 mcg by mouth once daily. 10/11/20 Active lisinopriL (PRINIVIL; ZESTRIL) 20 mg tablet Take 20 mg by mouth two times daily. 11/13/19 23 Active Active Problems Problem Noted Date Diagnosed Date Acute respiratory failure with hypoxia Pneumonia due to COVID-19 virus 11/11/2020 Mixed hyperlipidemia 11/11/2020 Benign essential HTN 11/11/2020 Primary hypothyroidism 11/11/2020 Restless leg syndrome 11/11/2020 Moderate asthma without complication 11/11/2020 Xanthelasma of left upper eyelid 03/15/2019 Restless leg syndrome 02/20/2019 Hypercholesterolemia 06/30/2018 Knee pain 06/30/2018 Morbid obesity 06/30/2018 Obstructive sleep apnea syndrome 06/30/2018 Overview (11/05/2020): 6 cm H2o End stage osteoarthritis of both knees 6 ACP (advance care planning) 03/09/2013 Overview (03/09/2013): Patient has identified Health Care Agent(s): No,declined HCD. Salima [phone] would be decision maker Add Health Care Agents: No Patient has Advance Care Plan Documents (Health Care Directive, POLST): No, declined HCD.. Patient has identified Specific Treatment Preferences: No Specific limits to treatment preferences NOT identified: ASSUME FULL TREATMENT. 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 Not on file Not on file Not on file Obstetrics History Last Filed Vital Signs Vital Sign Reading Time Taken Comments Blood Pressure 187/87 01/05/2023 12:18 PM NET SOFTWARE ENGINEER Takes medication for Hypertension, took meds Pulse 82 01/05/2023 12:18 PM NET SOFTWARE ENGINEER Temperature 36.5 C (97.7 F) 01/05/2023 12:18 PM NET SOFTWARE ENGINEER Respiratory Rate 23 01/05/2023 12:1 8 PM NET SOFTWARE ENGINEER Oxygen Saturation 94% 01/05/2023 12: 18 PM NET SOFTWARE ENGINEER Has asthma Inhaled Oxygen Concentration - - Weight 175.5 kg (387 lb) 01/05/2023 12: 18 PM NET SOFTWARE ENGINEER Height 165.1 cm (5' 5) 03/13/2021 3:52 AM CDT Body Mass Index 64.4 03/13/2021 3:52 AM CDT Plan of Treatment Health Maintenance Due Date Last Done Comments Depression screening for age 12+ 1980 HIV for age 15-65 1983 Hepatitis C screening for age 18-79 1986 Pap test for age 21-65 1989 Colonoscopy through age 75 2013 Lipids for age 45-75 2013 Mammogram for age 45-75 2013 BMI (ht and wt on same day) for age 18+ 08/24/2017 08/24/2016 Pneumococcal series for age 50+ (1 of 1 - PCV) 2018 Zoster (shingles) series for age 50+ (1 of 2) 2018 COVID-19 vaccine series (3 - season) 2024 03/26/2021, 03/05/2021 Influenza for age 50-64 07/12/2024 08/26/20 18, 08/26/2018, 08/23/2015 Tetanus booster 01/13/2032 01/12/2022, 07/15/2009 Tdap Completed 01/12/2022, 07/15/2009 Insurance [place] [facility] [employer] Advance Directives * Full Code (Latest Code [...] 6:21 PM 03/10/2013 6:09 PM Care Teams Extruder Relationship Specialty Start Date End Date Adi Brown MD PCP - General Family Practice 01/05/23
[2024-12-19 13:38] VITALS: BP 132/77; PULSE 62; RESP 18; TEMP 36.1; O2SAT 94; BMI 61.6
--- NOTE | 2024-12-19 13:56 | ED_ITS ---
HPI - General Adult General Chief complaint: Back Injury/Pain <Boby Bravo MD - Last Filed: 12/19/24 15:04> Stated complaint: back pains <Boby Bravo MD - Last Filed: 12/19/24 15:04> Time Seen by Provider: 12/19/24 13:30 <Boby Bravo MD - Last Filed: 12/19/24 15:04> History of Present Illness HPI narrative: Patient is a 54-year-old massively obese female who fell about a week ago at [employer] apparently subsequently he has had pain in her back in her interscapular area. Worse when she moves. She also complains of some pain on the right side of her chest wall. The bit on her left buttock area. But she is ambulatory without difficulty. She denies any chronic pain issues. She has had no chest pain anteriorly fever diaphoresis nausea vomiting. Past medical history as well as her medications are reviewed. She denies any extremity symp toms. No new focal neurologic deficit. <Boby Bravo MD - Last Filed: 12/19/24 15:04> Related Data Home medications: Home Medications ?Medication ?Instructions ?Recorded ?Confirmed multivitamin 1 tab PO DAILY 05/09/22 06/29/24 aspirin 81 mg tablet,delayed 81 mg PO DAILY 05/25/22 06/29/24 release (Adult Low Dose Aspirin) phentermine 15 mg capsule 15 mg PO DAILY 09/30/23 06/29/24 Previous Rx's ?Medication ?Instructions ?Recorded acetaminophen 500 mg capsule 500 - 1,000 mg (1 - 2 x 500 mg) PO 07/30/23 Q6H PRN pain #100 caps cetirizine 10 mg tablet 10 mg PO DAILY #90 tabs 12/19/23 lorazepam 1 mg tablet 1 mg PO QDAY PRN anxiety #21 tabs 01/13/24 cyanocobalamin (vitamin B-12) 1,000 mcg IM MONTHLY #10 mL 05/26/24 1,000 mcg/mL injection solution alprazolam 1 mg tablet 1 mg PO TID PRN anxiety #20 tabs 06/10/24 amlodipine 5 mg tablet 5 mg PO DAILY #90 tabs 06/29/24 atorvastatin 20 mg tablet 20 mg PO QHS #90 tabs 06/29/24 fluticasone propionate 110 2 puff inhalation BID #12 grams 06/29/24 mcg/actuation HFA aerosol inhaler hydrochlorothiazide 25 mg tablet 25 mg PO DAILY #90 tabs 06/29/24 lisinopril 20 mg tablet 20 mg PO BID #180 tabs 06/29/24 potassium chloride 20 mEq 20 meq PO BID #180 tabs 06/29/24 tablet,extended release(part/cryst) ropinirole 0.5 mg tablet 0.5 mg PO HS #90 tabs 06/29/24 phentermine 30 mg capsule 30 mg PO QDAY #30 caps 09/23/24 nirmatrelvir 300 mg (150 mg See Rx Instructions PO .COMPLEX 10/26/24 x2)-ritonavir 100 mg tablet,dose #30 ea pack (Paxlovid) escitalopram oxalate 10 mg tablet 10 mg PO DAILY #90 tabs 11/09/24 levothyroxine 150 mcg tablet 150 mcg PO DAILY #90 tabs 11/09/24 benzonatate 200 mg capsule 200 mg PO TID PRN cough #30 caps 11/30/24 albuterol sulfate 90 mcg/actuation 1 - 2 puff inhalation Q4H PRN 12/02/24 aerosol inhaler shortness of breath or wheezing #8.5 grams albuterol sulfate 2.5 mg/3 mL 2.5 mg (3 mL) inhalation Q4H PRN 12/03/24 (0.083 %) solution for nebulization shortness of breath or wheezing #30 mL ketorolac 10 mg tablet 10 mg PO Q8H PRN pain 3 days #10 12/19/24 tabs <Boby Bravo MD - Last Filed: 12/19/24 15:04> Allergies/adverse reactions: Allergies Allergy/AdvReac Type Severity Reaction Status Date / Time No Known Drug Allergies Allergy Verified 12/19/24 13:38 <Boby Bravo MD - Last Filed: 12/19/24 15:04> Review of Systems Status of ROS: Reports: 6 or more systems reviewed and unremarkable except as noted in History and below <Boby Bravo MD - Last Filed: 12/19/24 15:04> [facility] Medical History: Medical History Parathyroid adenoma ?D35.1 - Benign neoplasm of parathyroid gland (ICD-10) Infection due to severe acute respiratory syndrome coronavirus 2 (SARS-CoV-2) ?U07.1 - COVID-19 (ICD-10) <Boby Bravo MD - Last Filed: 12/19/24 15:04> Surgical History: Surgical History Status post parathyroidectomy ?Z98.890 - Other specified postprocedural states (ICD-10) ?Z90.89 - Acquired absence of other organs (ICD-10) Status post right knee replacement (09/30/23) ?Z96.651 - Presence of right artificial knee joint (ICD-10) History of arthroplasty of right knee (09/30/23) ?Z96.651 - Presence of right artificial knee joint (ICD-10) S/P total knee arthroplasty (07/30/23) ?Z96.659 - Presence of unspecified artificial knee joint (ICD-10) History of total abdominal hysterectomy (03/07/13) ?Z90.710 - Acquired absence of both cervix and uterus (ICD-10) H/O section ?Z98.891 - History of uterine scar from previous surgery (ICD-10) H/O partial thyroidectomy ?E89.0 - Postprocedural hypothyroidism (ICD-10) <Boby Bravo MD - Last Filed: 12/19/24 15:04> Family History: Family History Father Coronary artery disease Heart disease B12 deficiency Mother CHF (congestive heart failure) Atrial fibrillation Sister Hypothyroidism Sister Hypothyroidism Sister Hypothyroidism Sister Hypothyroidism <Boby Bravo MD - Last Filed: 12/19/24 15:04> Social History: Social History Narrative: She lives at home with her . Home has no stairs. Did well after knee surgery 2 months ago with mobility. She does not smoke. Rarely drinks alcohol. What is your current living situation?: I presently have a place to live Problems where you live: no known problems In the past 12 months, utilities in danger of being shut off: no In past 12 months, lack of transportation kept you from medical appts, meetings, work, or getting things needed for daily living: no In the past 12 mos, have been you worried that your food would run out before you had money to buy more?: never true In the past 12 mos, the food you bought just didn't last and you didn't have money to buy more?: never true Smoking Status: Former smoker What tobacco products do you use: cigarettes Smoking quit date/years: >15 years ago Do you use any of these nicotine containing products: None Second hand tobacco smoke exposure: No How often do you have a drink containing alcohol: monthly or less Alcohol type: wine How many standard drinks containing alcohol do you have on a typical day: 1 or 2 How often do you have six or more drinks on one occasion: Never AUDIT-C Alcohol total score: 1 Non-prescribed substance use: denies use Caffeine: Yes (coffee 1-2) How often does anyone, including family, friends and others, physically hurt you : never How often does anyone, including family, friends and others, insult or talk down to you: never How often does anyone, including family, friends and others, scream or curse at you: never service: No <Boby Bravo MD - Last Filed: 12/19/24 15:04> Exam Narrative: Exam Narrative: Objective: Vital signs are within normal limits, patient appears in no apparent distress She able to roll back and forth and and I am able to examine her interscapular area on her back. She has no midline tenderness complains a little bit of pain to the right side of the midline. No bruising or ecchymoses low back exam unremarkable left side of her ribcage area is unremarkable as well as the right. She is here with her . No focal neurologic findings. Pulses regular <Boby Bravo MD - Last Filed: 12/19/24 15:04> Const: Vital Signs, click to edit/add: Vital Signs - 24 hr 12/19/24 13:38 12/19/24 15:28 Temperature 96.9 F L Pulse Rate [Pulse Oximeter] 62 71 Respiratory Rate 18 18 Blood Pressure [Ri ght Forearm] 132/77 124/79 Pulse Oximetry 94 94 Oxygen Delivery Me thod Room Air Room Air <Boby Bravo MD - Last Filed: 12/19/24 15:04> Vital Signs, click to edit/add: Vital Signs - 24 hr 12/19/24 13:38 12/19/24 15:28 Temperature 96.9 F L Pulse Rate [Pulse Oximeter] 62 71 Respiratory Rate 18 18 Blood Pressure [Ri ght Forearm] 132/77 124/79 Pulse Oximetry 94 94 Oxygen Delivery Me thod Room Air Room Air <Bettye Sykes MD - Last Filed: 12/19/24 16:49> Course Vital Signs Vital signs: Initial Vital Signs Temperature 96.9 F L 12/19/24 13:38 Temperature Source Temporal Artery Scan 12/19/24 13:38 Pulse Rate 62 12/19/24 13:38 Pulse Rhythm Regular 12/19/24 13:38 Respiratory Rate 18 12/19/24 13:38 Blood Pressure 132/77 12/19/24 13:38 Blood Pressure Mean 95 12/19/24 13:38 Blood Pressure Position Sitting 12/19/24 13:38 Pulse Oximetry 94 12/19/24 13:38 Oxygen Delivery Method Room Air 12/19/24 13:38 Vital Signs Temperature 96.9 F L 12/19/24 13:38 Pulse Rate 62 12/19/24 13:38 Respiratory Rate 18 12/19/24 13:38 Blood Pressure 132/77 12/19/24 13:38 Pulse Oximetry 94 12/19/24 13:38 Oxygen Delivery Method Room Air 12/19/24 13:38 Temperature 96.9 F L 12/19/24 13:38 Pulse Rate 71 12/19/24 15:28 Respiratory Rate 18 12/19/24 15:28 Blood Pressure 124/79 12/19/24 15:28 Pulse Oximetry 94 12/19/24 15:28 Oxygen Delivery Method Room Air 12/19/24 15:28 <Boby Bravo MD - Last Filed: 12/19/24 15:04> Initial Vital Signs Temperature 96.9 F L 12/19/24 13:38 Temperature Source Temporal Artery Scan 12/19/24 13:38 Pulse Rate 62 12/19/24 13:38 Pulse Rhythm Regular 12/19/24 13:38 Respiratory Rate 18 12/19/24 13:38 Blood Pressure 132/77 12/19/24 13:38 Blood Pressure Mean 95 12/19/24 13:38 Blood Pressure Position Sitting 12/19/24 13:38 Pulse Oximetry 94 12/19/24 13:38 Oxygen Delivery Method Room Air 12/19/24 13:38 Vital Signs Temperature 96.9 F L 12/19/24 13:38 Pulse Rate 62 12/19/24 13:38 Respiratory Rate 18 12/19/24 13:38 Blood Pressure 132/77 12/19/24 13:38 Pulse Oximetry 94 12/19/24 13:38 Oxygen Delivery Method Room Air 12/19/24 13:38 Temperature 96.9 F L 12/19/24 13:38 Pulse Rate 71 12/19/24 15:28 Respiratory Rate 18 12/19/24 15:28 Blood Pressure 124/79 12/19/24 15:28 Pulse Oximetry 94 12/19/24 15:28 Oxygen Delivery Method Room Air 12/19/24 15:28 <Bettye Sykes MD - Last Filed: 12/19/24 16:49> Medications Administered Medications: Discontinued Medications Generic Name Dose Route Start Last Admin Trade Name Freq PRN Reason Stop Dose Admin Ketorolac Tromethamine 10 mg 12/19/24 15:22 12/19/24 15:29 Ketorolac 10 Mg Tablet PO 12/19/24 15:23 10 mg ONCE ONE Administration Morphine Sulfate 7.5 mg 12/19/24 13:52 12/19/24 14:00 Morphine 10 Mg/Ml Inj IM 12/19/24 13:53 7.5 mg ONCE ONE Administration <Boby Bravo MD - Last Filed: 12/19/24 15:04> Discontinued Medications Generic Name Dose Route Start Last Admin Trade Name Freq PRN Reason Stop Dose Admin Ketorolac Tromethamine 10 mg 12/19/24 15:22 12/19/24 15:29 Ketorolac 10 Mg Tablet PO 12/19/24 15:23 10 mg ONCE ONE Administration Morphine Sulfate 7.5 mg 12/19/24 13:52 12/19/24 14:00 Morphine 10 Mg/Ml Inj IM 12/19/24 13:53 7.5 mg ONCE ONE Administration <Bettye Sykes MD - Last Filed: 12/19/24 16:49> Medical Decision Making MDM Narrative Medical decision making narrative: 54-year-old obese female with a fall with subsequent interscapular tende rness. I think checking a thoracic x-ray as well as chest and rib detail on the right would be appropriate. Will give her morphine 7.5 mg IM. I think also checking an EKG might be appropriate just given her generalized complaints and body habitus no other medical issues. She really does not have any chest pain but is describing his interscapular pain with movement consistent with her fall. Unclear if this is related to her fall or simply just having back discomfort inside discomfort. She stated that her knee seemed to give way and when she fell but she really does not describe any knee pain at this time. Addendum 2:03 p.m.: The patient is able to say that it hurts more when she moves her back and her side, basically her ribs. At this point I think checking an x- ray is appropriate as well as labs I have really 0 suspicion for coronary issues but just given that she has such a poor historian and a difficult history give her that I think would be tsang to just check this. Will check troponin labs and the EKG. X-rays are pending. Addendum 3:00 p.m.: Patient's EKG by my read shows normal sinus rhythm no acute ST with T-wave changes. Laboratory studies show a troponin that is 0, white count slightly elevated at 13,000 thousand, your profile is unremarkable other than glucose nonfasting is 149. Given the patient's size we elected to proceed with CT scan of her chest as this may show more of accurately her thoracic spine as well as her ribs in detail. Given her size I do not think plain films would be adequate. <Boby Bravo MD - Last Filed: 12/19/24 15:04> 54-year-old obese female with a fall with subsequent interscapular tenderness. I think checking a thoracic x-ray as well as chest and rib detail on the right would be appropriate. Will give her morphine 7.5 mg IM. I think also checking an EKG might be appropriate just given her generalized complaints and body habitus no other medical issues. She really does not have any chest pain but is describing his interscapular pain with movement consistent with her fall. Unclear if this is related to her fall or simply just having back dis comfort inside discomfort. She stated that her knee seemed to give way and when she fell but she really does not describe any knee pain at this time. Addendum 2:03 p.m.: The patient is able to say that it hurts more when she moves her back and her side, basically her ribs. At this point I think checking an x- ray is appropriate as well as labs I have really 0 suspicion for coronary issues but just given that she has such a poor historian and a difficult history give her that I think would be tsang to just check this. Will check troponin labs and the EKG. X-rays are pending. Addendum 3:00 p.m.: Patient's EKG by my read shows normal sinus rhythm no acute ST with T-wave changes. Laboratory studies show a troponin that is 0, white count slightly elevated at 13,000 thousand, your profile is unremarkable other than glucose nonfasting is 149. Given the patient's size we elected to proceed with CT scan of her chest as this may show more of accurately her thoracic spine as well as her ribs in detail. Given her size I do not think plain films would be adequate. Does not show any evidence of fractures. <Bettye Sykes MD - Last Filed: 12/19/24 16:49> Lab Data Labs: Lab Results 12/19/24 12/19/24 Range/Units 14:01 14:20 WBC 13.10 H (4.50-11.00) K/uL RBC 4.76 (4.00-5.20) m/uL Hgb 13.2 (12.0-16.0) gm/dL Hct 41.2 (33.0-51.0) % MCV 87 (80-100) fL MCH 28 (26-34) pg MCHC 32 (32-36) gm/dL RDW Coeff of Eran 13.4 (11.5-15.5) % Plt Count 294 (140-440) K/uL Neut % (Auto) 76.4 H (42.0-72.0) % Lymph % (Auto) 15.4 L (20-44) % [place] % (Auto) 6.6 (0.0-11.0) % Eos % (Auto) 1.2 (0.0-7.0) % Baso % (Auto) 0.2 (0.0-3.0) % Neut # (Auto) 10.00 H (1.7-7.0) K/uL Lymph # (Auto) 2.00 (0.90-2.90) K/uL [place] # (Auto) 0.90 (0.00-0.90) K/UL Eos # (Auto) 0.20 (0.00-0.50) K/uL Baso # (Auto) 0.00 (0.00-0.30) K/uL Abs Immat Gran (auto) 0.00 (0.00-0.30) K/uL Imm/Tot Granulo (auto) 0.2 % Sodium 137 (135-149) mmol/L Potassium 4.2 (3.6-5.1) mmol/L Chloride 103 (96-114) mmol/L Carbon Dioxide 25 (20-32) mmol/L Anion Gap 9 (7-15) mEq/L BUN 25 (7-30) mg/dL Creatinine 0.9 (0.5-1.5) mg/dL Estimated Creat Clear 62.81 Estimated GFR 75 ml/min Glucose 149 H (60-115) mg/dL Calcium 9.0 (8.4-10.6) mg/dL POC Troponin I 0.00 L (0.01-0.04) ng/ml <Boby Bravo MD - Last Filed: 12/19/24 15:04> Lab Results 12/19/24 12/19/24 Range/Units 14:01 14:20 WBC 13.10 H (4.50-11.00) K/uL RBC 4.76 (4.00-5.20) m/uL Hgb 13.2 (12.0-16.0) gm/dL Hct 41.2 (33.0-51.0) % MCV 87 (80-100) fL MCH 28 (26-34) pg MCHC 32 (32-36) gm/dL RDW Coeff of Eran 13.4 (11.5-15.5) % Plt Count 294 (140-440) K/uL Neut % (Auto) 76.4 H (42.0-72.0) % Lymph % (Auto) 15.4 L (20-44) % [place] % (Auto) 6.6 (0.0-11.0) % Eos % (Auto) 1.2 (0.0-7.0) % Baso % (Auto) 0.2 (0.0-3.0) % Neut # (Auto) 10.00 H (1.7-7.0) K/uL Lymph # (Auto) 2.00 (0.90-2.90) K/uL [place] # (Auto) 0.90 (0.00-0.90) K/UL Eos # (Auto) 0.20 (0.00-0.50) K/uL Baso # (Auto) 0.00 (0.00-0.30) K/uL Abs Immat Gran (auto) 0.00 (0.00-0.30) K/uL Imm/Tot Granulo (auto) 0.2 % Sodium 137 (135-149) mmol/L Potassium 4.2 (3.6-5.1) mmol/L Chloride 103 (96-114) mmol/L Carbon Dioxide 25 (20-32) mmol/L Anion Gap 9 (7-15) mEq/L BUN 25 (7-30) mg/dL Creatinine 0.9 (0.5-1.5) mg/dL Estimated Creat Clear 62.81 Estimated GFR 75 ml/min Glucose 149 H (60-115) mg/dL Calcium 9.0 (8.4-10.6) mg/dL POC Troponin I 0.00 L (0.01-0.04) ng/ml <Bettye Sykes MD - Last Filed: 12/19/24 16:49> Imaging Data CT scan - chest: Attestation: I have reviewed the pertinent imaging results. <Bettye Sykes MD - Last Filed: 12/19/24 16:49> Radiologist's impression: CT chest without IV contrast Comparison: None Findings: No thyroid nodules. No thoracic lymphadenopathy. Mediastinal lipomatosis. The heart is at the upper limits of normal in size. The thoracic aorta is normal in diameter. The main pulmonary artery is mildly dilated to 3.6 centimeters, suggestive of pulmonary arterial hypertension. No focal airspace consolidation, pleural effusion, or pneumothorax. No suspicious pulmonary nodules or masses. The airways are clear. The visualized upper abdomen is without acute abnormality. Well-circumscribed low-density right hepatic lesion, incompletely characterized on this exam, but likely benign cysts. Cholelithiasis without CT evidence of acute cholecystitis. The soft tissues are without acute abnormality. Tiny calcified granuloma in the subcutaneous fat of the right thorax. No acute fracture or malalignment. No significant degenerative changes of the spine. Impression: 1. No CT evidence of acute process involving the thorax; specifically, no acute fracture or malalignment. 2. Incidental findings as detailed above. <Bettye Sykes MD - Last Filed: 12/19/24 16:49> Discharge Plan Discharge Clinical Impression: Acute thoracic back pain <Boby Bravo MD - Last Filed: 12/19/24 15:04> Patient Disposition: Home w/ Parent or Adult <Boby Bravo MD - Last Filed: 12/19/24 15:04> Condition: Stable <Boby Bravo MD - Last Filed: 12/19/24 15:04> Additional Instructions: No evidence of fractures seen on CT scan. Light activity, Toradol as needed, fluids, continue home medications, follow up with primary care in the next 2-3 days. She can put ice on the area that is affected in year back 5-10 minutes 3 to 4 times a day for the next several days. <Boby Bravo MD - Last Filed: 12/19/24 15:04> Activity Level: Light activity <Boby Bravo MD - Last Filed: 12/19/24 15:04> Light activity <Bettye Sykes MD - Last Filed: 12/19/24 16:49> Prescriptions: New ketorolac 10 mg tablet 10 mg PO Q8H PRN (Reason: pain) 3 Days Qty: 10 0RF No Action aspirin [Adult Low Dose Aspirin] 81 mg tablet,delayed release (DR/EC) 81 mg PO DAILY amlodipine 5 mg tablet 5 mg PO DAILY Qty: 90 3RF atorvastatin 20 mg tablet 20 mg PO QHS Qty: 90 3RF fluticasone propionate 110 mcg/actuation HFA aerosol inhaler 2 puff inhalation BID Qty: 12 8RF hydrochlorothiazide 25 mg tablet 25 mg PO DAILY Qty: 90 3RF lisinopril 20 mg tablet 20 mg PO BID Qty: 180 3RF potassium chloride 20 mEq tablet,ER particles/crystals 20 meq PO BID Qty: 180 3RF ropinirole 0.5 mg tablet 0.5 mg PO HS Qty: 90 3RF acetaminophen 500 mg capsule 500 - 1,000 mg PO Q6H MDD 4000mg per day PRN (Reason: pain) Qty: 100 0RF phentermine 15 mg capsule 15 mg PO DAILY Rx Instructions: must administer 2 hours after breakfast multivitamin Tablet 1 tab PO DAILY cetirizine 10 mg tablet 10 mg PO DAILY Qty: 90 3RF lorazepam 1 mg tablet 1 mg PO QDAY PRN (Reason: anxiety) Qty: 21 0RF cyanocobalamin (vitamin B-12) 1,000 mcg/mL solution 1,000 mcg IM MONTHLY Qty: 10 0RF alprazolam 1 mg tablet 1 mg PO TID PRN (Reason: anxiety) Qty: 20 0RF phentermine 30 mg capsule 30 mg PO QDAY Qty: 30 2RF Rx Instructions: must administer 2 hours after breakfast Paxlovid 300 mg (150 mg x 2)-100 mg tablets,dose pack See Rx Instructions PO .COMPLEX Qty: 30 0RF Rx Instructions: take TWO 150 mg tablets of nirmatrelvir with ONE 100 mg tablet of ritonavir twice daily for 5 days PO levothyroxine 150 mcg tablet 150 mcg PO DAILY Qty: 90 1RF escitalopram oxalate 10 mg tablet 10 mg PO DAILY Qty: 90 0RF benzonatate 200 mg capsule 200 mg PO TID PRN (Reason: cough) Qty: 30 1RF albuterol sulfate 90 mcg/actuation HFA aerosol inhaler 1 - 2 puff inhalation Q4H PRN (Reason: shortness of breath or wheezing) Qty: 8.5 3RF albuterol sulfate 2.5 mg /3 mL (0.083 %) solution for nebulization 2.5 mg inhalation Q4H PRN (Reason: shortness of breath or wheezing) Qty: 30 0RF <Boby Bravo MD - Last Filed: 12/19/24 15:04> Follow Up/Referrals: Adi Brown MD [Primary Care Provider] - <Boby Bravo MD - Last Filed: 12/19/24 15:04> Stand Alone Forms: [facility] Info Instructions <Boby Bravo MD - Last Filed: 12/19/24 15:04>
[2024-12-19] MEDS: MORPHINE 10 MG/ML inj 7.5 MG IM (14:00)
--- OUTSIDE RECORDS SUMMARY | 2024-12-19 14:24 | XMS_ITS | Encounter Summary ---
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 [address] [place] [address] Phone: tel: fax: [facility] Region Referral ID Status Reason Start Date Expiration Date Visits Re quested Visits Authorized [id number] Closed 11/29/2024 11/29/2025 1 1 IFIED PEER SPECIALIST Reason for Visit * Reason Comments Cough Congestion Encounter Details Date Type Department Care Team ([facility] Contact Info) Description 11/29/2024 3:00 PM CERTIFIED PEER SPECIALIST Office Visit Urgent Care in [place], [place] [address] [place] [id number] David Shepherd D.O. [address] [place] [address] Cough Unspecified Type (Primary Dx); Apnea Sleep [...] on file Legal Sex Female 9:23 AM CERTIFIED PEER SPECIALIST Gender Identity Female 06/30/2018 8:07 AM CDT Sexual Orientation Not on file documented as of this encounter Last Filed Vital Signs Vital Sign Reading Time Taken Comments Blood Pressure 100/60 11/29/2024 3:06 PM CERTIFIED PEER SPECIALIST Pulse 90 11/29/2024 3:06 PM CERTIFIED PEER SPECIALIST Temperature 36.7 C (98.1 F) 11/29/2024 3:06 PM CERTIFIED PEER SPECIALIST Respiratory Rate - - Oxygen Saturation 95% 11/29/2024 3:06 PM CERTIFIED PEER SPECIALIST Inhaled Oxygen Concentration - - Weight 168 kg (370 lb 2.4 oz) 11/29/2024 3:06 PM CERTIFIED PEER SPECIALIST Height - - Body Mass Index 63.43 02/20/2019 2:13 PM CDT documented in this encounter Patient Instructions * Patient Instructions* David Shepherd D.O. - 11/29/2024 3:00 PM CERTIFIED PEER SPECIALIST [place] spray 3-4 times a day. Flonase/fluticasone or Nasacort 1 hour before or after nasal saline 2 times a day. Ramoan 1-2 times a day to help with postnasal drip. Ibuprofen: 2-4 times a day. IFIED PEER SPECIALIST IFIED PEER SPECIALIST documented in this encounter Progress Notes * [...] questions or concerns persist, worsen, or develop. IFIED PEER SPECIALIST documented in this encounter Plan of Treatment Not on file documented as of this encounter Results * DX Chest AP or PA and Lateral 2 Views (11/29/2024 3:21 PM CERTIFIED PEER SPECIALIST) Anatomical Region Laterality Modality Chest, Thoracic RST LOS, Tho racic ARZ LOS, Thoracic FLA LOS N/A Digital Radiography Impressions 11/29/2024 3:23 PM CERTIFIED PEER SPECIALIST No acute cardiopulmonary disease. 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
--- OUTSIDE RECORDS SUMMARY | 2024-12-19 14:24 | XMS_ITS | Encounter Summary ---
Author Organization [facility] Address [address] [place] [address] Care Team Providers Care Supervisor Wool Shearing Name Role Phone Elsewhere, Pcp Primary Care Provider Unavailabl e Reason for Referral * Outpatient (Routine) - Closed Specialty Diagnoses / Procedures Referred By Contac t Referred To Contact Diagnoses Cough Unspecified Type Procedures DX Chest AP or PA and Lateral 2 Views Mikey Engel P.A.-C., P.A. [address] [place] [address] Phone: tel: fax: [facility] Referral ID Status Reason Start Date Expiration Date Visits Re quested Visits Authorized [id number] Closed 11/29/2024 11/29/2025 1 1 PROGRAMMER Reason for Visit * Outpatient (Routine) - Closed Specialty Diagnoses / Procedures Referred By Contac t Referred To Contact Diagnoses Cough Unspecified Type Procedures DX Chest AP or PA and Lateral 2 Views Mikey Engel P.A.-C., P.A. [address] [place] [address] Phone: tel: fax: [facility] Referral ID Status Reason Start Date Expiration Date Visits Re quested Visits Authorized [id number] Closed 11/29/2024 11/29/2025 1 1 Encounter Details Date Type Department Care Team (Late st Contact Info) Description 11/29/2024 3:14 PM UI PROGRAMMER - 11/29/2024 11:59 PM UI PROGRAMMER Hospital Encounter Department of Radiology, [facility], in [place], [place] [address] [place] [id number] Mikey Engel P.A.-C., P.A. [address] [place] [address] Cough Unspecified Type Discharge Disposition: Home or [...] on file Legal Sex Female 9:23 AM UI PROGRAMMER Gender Identity Female 06/30/2018 8:07 AM CDT [...] inpatients and all outpatients) 11/29/2024 3:21 PM UI PROGRAMMER Cough Unspecified Type documented in this encounter Results * DX Chest AP or PA and Lateral 2 Views (11/29/2024 3:21 PM UI PROGRAMMER) Anatomical Region Laterality Modality Chest, Thoracic RST LOS, Tho racic ARZ LOS, Thoracic FLA LOS N/A Digital Radiography Impressions 11/29/2024 3:23 PM UI PROGRAMMER No acute cardiopulmonary disease. Narrative 11/29/2024 3:23 PM UI PROGRAMMER EXAM: DX CHEST AP OR PA AND [...] documented as of this encounter Care Teams Supervisor Wool Shearing Relationship Specialty Start Date End Date Elsewhere, Pcp PCP - General Family Medicine 06/06/21 documented as of this encounter
--- OUTSIDE RECORDS SUMMARY | 2024-12-19 14:24 | XMS_ITS | Clinical Summary ---
Author Organization [facility] Address [place], [place] [address] Care Team Providers Care Color Shop Helper Name Role Phone Adi Brown MD Primary Care Provider [phone] Allergies No known active allergies Medications rOPINIRole [...] identified Health Care Agent(s): No,declined HCD. 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 Not on file Not on file Not on file Obstetrics History Last Filed Vital Signs Vital Sign Reading Time Taken Comments Blood Pressure 187/87 01/05/2023 12:18 PM MANAGER FARM Takes medication for Hypertension, took meds Pulse 82 01/05/2023 12:18 PM MANAGER FARM Temperature 36.5 C (97.7 F) 01/05/2023 12:18 PM MANAGER FARM Respiratory Rate 23 01/05/2023 12:1 8 PM MANAGER FARM Oxygen Saturation 94% 01/05/2023 12: 18 PM MANAGER FARM Has asthma Inhaled Oxygen Concentration - - Weight 175.5 kg (387 lb) 01/05/2023 12: 18 PM MANAGER FARM Height 165.1 cm (5' 5) 03/13/2021 3:52 [...] 01/12/2022, 07/15/2009 Insurance BLUE CR[place] OF [place]-ITS [facility] [employer] [employer] Advance Directives * Full Code [...] 6:21 PM 03/10/2013 6:09 PM Care Teams Color Shop Helper Relationship Specialty Start Date End Date Adi Brown MD PCP - General Family Practice 01/05/23
--- OUTSIDE RECORDS SUMMARY | 2024-12-19 14:24 | XMS_ITS | Clinical Summary ---
Author Organization [facility] Address [address] [place] [id number] Care Team Providers Care Chemical Dependency Counselor Name Role Phone Elsewhere, Pcp Primary Care Provider Unavailabl e Source Comments Patient records contain information from all sites at [facility]. For routine questions regarding patient records, call [phone] during business hours, M-F 8:00 AM - 5:00 PM Central Time. Record requests for emergency care only can be directed to [phone] at any time.[facility] Allergies No known active allergies Medications * [...] Department Care Team Description 11/29/2024 3:14 PM CENTRAL OFFICE MAINTAINER - 11/29/2024 11:59 PM CENTRAL OFFICE MAINTAINER Hospital Encounter Department of Radiology, [facility], in [place], [place] [address] [place] [address] Mikey Engel P.A.-C., P.A. Cough Unspecified Type Discharge Disposition: Home or Self Care 11/29/2024 3:00 PM CENTRAL OFFICE MAINTAINER Office Visit Urgent Care in [place], [place] [address] [place] [address] David Shepherd D.O. Cough Unspecified Type (Primary [...] on file Legal Sex Female 9:23 AM CENTRAL OFFICE MAINTAINER Gender Identity Female 06/30/2018 8:07 AM CDT Sexual Orientation Not on file Last Filed Vital Signs Vital Sign Reading Time Taken Comments Blood Pressure 100/60 11/29/2024 3:06 PM CENTRAL OFFICE MAINTAINER Pulse 90 11/29/2024 3:06 PM CENTRAL OFFICE MAINTAINER Temperature 36.7 C (98.1 F) 11/29/2024 3:06 PM CENTRAL OFFICE MAINTAINER Respiratory Rate 21 04/03/2023 8:15 AM CDT Oxygen Saturation 95% 11/29/2024 3:06 PM CENTRAL OFFICE MAINTAINER Inhaled Oxygen Concentration - - Weight 168 kg (370 lb 2.4 oz) 11/29/2024 3:06 PM CENTRAL OFFICE MAINTAINER Height 162.7 cm (5' 4.06) 02/20/2019 2:13 [...] inpatients and all outpatients) 11/29/2024 3:21 PM CENTRAL OFFICE MAINTAINER Cough Unspecified Type BASIC METABOLIC PANEL, S/P [...] and Lateral 2 Views (11/29/2024 3:21 PM CENTRAL OFFICE MAINTAINER) Anatomical Region Laterality Modality Chest, Thoracic RST LOS, Tho racic ARZ LOS, Thoracic FLA LOS N/A Digital Radiography Impressions 11/29/2024 3:23 PM CENTRAL OFFICE MAINTAINER No acute cardiopulmonary disease. Narrative 11/29/2024 3:23 PM CENTRAL OFFICE MAINTAINER EXAM: DX CHEST AP OR PA AND [...] M.P.H. LAB BLOOD ADD-ON Fi nal Result [facility]NOTE 3] LAB [address] [place] [address], [facility] NPRG [facility] [address] [place] [address] * (ABNORMAL) Lipid Panel (09/02/2019 1:32 PM [...] Andrea M.D. LAB BLOOD ADD-ON Final Result [facility] [address] [place] [address], [place] OWAT [facility] in [place] [address] [place] [address] * S-TSH (Thyroid-Stimulating Hormone - Sensitive) (09/02/2019 1:32 PM CDT) TSH, Sensitive 3.2 0.3 - 4.2 mIU/L 09/02/2019 4:[address] [facility] Comment: Biotin has been identified by the direct sales consultant as a potential interfering substance. Higher concentrations of biotin may be found in multivitamins, hair/nail supplements, and workout supplements. If the result does not match clinical observations, repeat testing after patient refrains from the use of supplements for at least 12 hours. Blood (Blood, Venous) 09/02/2019 1:32 PM CDT 09/02/2019 3:45 PM CDT Gretchen Andrea M.D. LAB BLOOD ADD-ON Final Result [facility] [address] [place] [address], [facility] OWAT [facility] [place] [address] [place] [address] * ThinPrep w/HPV Co-Test Diagnostic (02/20/2019 3:54 PM CDT) 02/24/2019 2:05 PM CDT [facility] Report electronically signed by ALONA Oliver(ASCP) I verify that I have examined all relevant slides/materials for the specimen(s) and rendered or confirmed the diagnosis. 02/24/2019 2:05 PM CDT [facility] Gross Description Received specimen in a ThinPrep vial. 02/24/2019 2:05 PM CDT [facility] Pap Test Source Cervical/Endocervi austin 02/24/2019 2:05 PM CDT [facility] Clinical History CEC 02/25/20 19 2:05 PM CDT [facility] Menstrual Status(LMP, PM, ) Hysterectomy 02/24/2019 2:05 PM CDT [facility] Hormone Therapy/Contracep tives none 02/24/2019 2:05 PM CDT [facility] Interpretation Cervical/Endocervi austin (ThinPrep): Satisfactory for Evaluation Endocervical/trans formation zone components absent Negative for Intraepithelial Lesion or Malignancy High Risk HPV Testing results are NEGATIVE. HPV by Senior Site Manager-Medi ated Amplification (TMA) for E6/E7 viral messenger RNA (mRNA) is an in-vitro diagnostic test for the detection of 14 high-risk Human Papilloma (HPV) types (16, 18, 31, 33, 35, 39, 45, 51, 52, 56, 58, 59, 66, and 68) in cervical specimens. Additional testing performed at [facility] ([facility], [address] [place] [address]. 02/24/2019 2:05 PM CDT [facility] Varies (Cervix/Endocerv ix) 02/20/2019 3:54 PM CDT 02/23/2019 8:46 AM CDT Gretchen Andrea M.D. LAB PAP PATHDX O RDERABLES Final Result Performing Organization Address City/State/[facility] Co de Phone Number [facility] [address] [place] [address], [facility] from Last 3 Months or Most Recently Relevant to Health Maintenance Insurance [facility] [place] [id number] Care Teams Chemical Dependency Counselor Relationship Specialty Start Date End Date Elsewhere, Pcp PCP - General Family Medicine 06/06/21
[2024-12-19 14:36] LABS: Basophils Percent Auto 0.2 % (0.0-3.0); Eosinophils Percent Auto 1.2 % (0.0-7.0); Hematocrit 41.2 % (33.0-51.0); Hemoglobin* 13.2 gm/dL (12.0-16.0); Immature Granulocytes Pct Auto 0.2 %; Lymphocytes Percent Auto 15.4 % (20-44); Mean Corpuscular HGB Conc 32 gm/dL (32-36); Mean Corpuscular Hemoglobin 28 pg (26-34); Mean Corpuscular Volume 87 fL (80-100); Monocytes Percent Auto 6.6 % (0.0-11.0); Neutrophils Percent Auto 76.4 % (42.0-72.0); Platelet Count* 294 K/uL (140-440); RDW Coefficient of Variation % 13.4 % (11.5-15.5); Red Blood Count 4.76 m/uL (4.00-5.20)
[2024-12-19 14:38] LABS: Slide Review Reflex No
[2024-12-19 14:49] LABS: Chloride* 103 mmol/L (96-114); Potassium* 4.2 mmol/L (3.6-5.1); Sodium* 137 mmol/L (135-149)
[2024-12-19 14:52] LABS: Anion Gap 9 mEq/L (7-15); Blood Urea Nitrogen* 25 mg/dL (7-30); Carbon Dioxide* 25 mmol/L (20-32); Creatinine* 0.9 mg/dL (0.5-1.5); Est. Creatinine Clearance* 62.81; Estimated Glomerular Filt Rate 75 ml/min; Glucose* 149 mg/dL (60-115)
--- NOTE | 2024-12-19 14:58 | CRLHL7_ITS ---
For Patients: As a result of the Century Cures Act, medical imaging exams and procedure reports are released immediately into your electronic medical record. You may view this report before your referring provider. If you have questions, please contact your health care provider. Indication: thoracic and rt rib pain Technique: CT chest without IV contrast Comparison: None Findings: No thyroid nodules. No thoracic lymphadenopathy. Mediastinal lipomatosis. The heart is at the upper limits of normal in size. The thoracic aorta is normal in diameter. The main pulmonary artery is mildly dilated to 3.6 centimeters, suggestive of pulmonary arterial hypertension. No focal airspace consolidation, pleural effusion, or pneumothorax. No suspicious pulmonary nodules or masses. The airways are clear. The visualized upper abdomen is without acute abnormality. Well-circumscribed low-density right hepatic lesion, incompletely characterized on this exam, but likely benign cysts. Cholelithiasis without CT evidence of acute cholecystitis. The soft tissues are without acute abnormality. Tiny calcified granuloma in the subcutaneous fat of the right thorax. No acute fracture or malalignment. No significant degenerative changes of the spine. Impression: 1. No CT evidence of acute process involving the thorax; specifically, no acute fracture or malalignment. 2. Incidental findings as detailed above. Please note that all CT scans at this facility use dose modulation, iterative reconstruction, and/or weight-based dosing when appropriate to reduce radiation dose to as low as reasonably achievable. Dictated by Steve Ramirez MD @ 12/19/2024 4:45:20 PM (Electronically Signed)
[2024-12-19 15:28] VITALS: BP 124/79; PULSE 71; RESP 18; O2SAT 94
[2024-12-19] MEDS: KETOROLAC 10 MG TABLET PO (15:29)
== END 2024-12-19 17:13 | disposition home or self-care (01) ==
PROVIDERS: Emergency Provider Family Medicine; PCP Family Medicine
DX: M54.6 Pain in thoracic spine (principal)
CPT/HCPCS: 36415; 71250; 72128; 80048; 84484; 85025; 93005; 96372; 99284; 99285; A9270; J2270

== ENCOUNTER 2025-06-04 09:15 | Outpatient (CLI) | payer BC, SELFPAY ==
--- NOTE | 2025-06-04 09:45 | CRLHL7_ITS ---
For Patients: As a result of the Century Cures Act, medical imaging exams and procedure reports are released immediately into your electronic medical record. You may view this report before your referring provider. If you have questions, please contact your health care provider. INDICATION: BILATERAL SCREENING MAMMOGRAM, ASYMPTOMATIC 54 Y/O FEMALE COMPARISON: 04/04/2017, 05/09/2015, 01/29/2014 TECHNIQUE: Digital mammogram in CC and MLO projections including computer-aided detection (CAD) and tomosynthesis. BREAST COMPOSITION: The breasts are almost entirely fatty. FINDINGS: No suspicious findings. ASSESSMENT: BI-RADS 1 Negative RECOMMENDATION: Annual screening mammogram. A lay language report of this examination will be provided to the patient. Dictated by: Corina Falk MD @ 06/07/2025 21:22:43 (Electronically Signed)
== END 2025-06-04 09:16 | disposition home or self-care (01) ==
LOC: MAMMO 09:16
PROVIDERS: PCP Family Medicine; Visit Provider Family Medicine
DX: Z12.31 Encounter for screening mammogram for malignant neoplasm of breast (principal)
CPT/HCPCS: 77063; 77067

== ENCOUNTER 2025-07-30 11:06 | Outpatient (CLI) | payer BC, SELFPAY | END 2025-07-30 11:07 | disposition home or self-care (01) | PROVIDERS: PCP Family Medicine; Visit Provider Family Medicine | DX: I10 Essential (primary) hypertension (principal); E78.2 Mixed hyperlipidemia; E03.9 Hypothyroidism, unspecified | CPT/HCPCS: 80048; 80061; 84443 ==